=== PATIENT | male | born 1930 | race Caucasian/White ===

== ENCOUNTER 2016-08-28 17:33 | Emergency (ER) | payer MEDICARE, BC ==
[2016-08-28] MEDS ORDERED: Sodium Chloride 0.9% 10 ML Syringe FLUSH PRN (17:55)
[2016-08-28] MEDS ORDERED: Aspirin 81 MG Tab.EC PO ONE (17:55)
[2016-08-28] MEDS ORDERED: Nitroglycerin 0.4 MG Tab.SL SL ONE (17:56)
--- NOTE | 2016-08-28 18:05 | EDM.PDOC ---
ED HISTORY OF PRESENT ILLNESS - General Chief Complaint: Chest Pain Stated Complaint: Left arm pain Time Seen by Provider: 08/28/16 17:52 Source of Information: Reports: Patient, Family, RN, RN notes reviewed History Limitations: Reports: No limitations - History of Present Illness INITIAL COMMENTS - FREE TEXT/NARRATIVE: Patient presents to the ED at [facility] with left arm pain. The patient's family states he also had chest pain. The pains started about one hour ago. The patient states he took two baby ASA. Patient has a history of CABG 2002. Patient also known diabetic with well controlled sugars. Patient states he has some mild SOB. No new edema. No new focal neurological deficits. Symptom Onset Date: 08/28/16 Symptom Onset Time: 17:00 Timing/Duration: Reports: Improving Location, General: Reports: upper extremity, left Quality: Reports: Pressure Improves with: Reports: None Worsens with: Reports: None Context, General: Denies: Activity, Exercise, Lifting, Sick contact, Trauma Associated Symptoms (General): Reports: no other symptoms - Related Data Allergies/ADRs: Allergies Allergy/AdvReac Type Severity Reaction Status Date / Time No Known Allergies Allergy Verified 08/28/16 18:02 Home Meds: Home Meds Allopurinol [Allopurinol] 100 mg PO DAILY 08/28/16 [History] Aspirin [Ecotrin] 81 mg PO DAILY 08/28/16 [History] Calcium Citrate/Vitamin D3 [Citracal + D Maximum Caplet] 1 tab PO DAILY [History] Cholecalciferol (Vitamin D3) [Vitamin D3] 1,000 unit PO DAILY 08/28/16 [History] Cyanocobalamin (Vitamin B-12) [B-12] 1 tab PO DAILY 08/28/16 [History] Doxazosin [Cardura] 4 mg PO BEDTIME 08/28/16 [History] FA/Lycopene/Lut/MV,Ca,Iron,Min [Centrum] 1 tab PO DAILY 08/28/16 [History] Fish Oil/[place]-3 Fatty Acids [Fish Oil 1,000 MG] 1,000 mg PO DAILY 08/28/16 [ History] Fluticasone Propionate [Flonase] 1 spray NS BID 08/28/16 [History] Lutein/Minerals/Vit A,C & E [Ocuvite] 1 tab PO DAILY 08/28/16 [History] Metoprolol Tartrate 150 mg PO BID 08/28/16 [History] Triamcinolone Acetonide [Triamcinolone Acetonide 0.1% Oint] 1 g TOP BID [History] amLODIPine [Norvasc] 5 mg PO DAILY 08/28/16 [History] atorvaSTATin [Lipitor] 20 mg PO BEDTIME 08/28/16 [History] glipiZIDE [Glipizide] 5 mg PO ACBREAKFAST 08/28/16 [History] Past Medical History Cardiovascular History: Reports: CAD, High cholesterol, Hypertension, [place] Musculoskeletal History: Reports: Gout Social & Family History - Family History Family Medical History: Noncontributory ED ROS GENERAL - Review of Systems Review Of Systems: See Below Constitutional: Denies: fever, chills, weakness Respiratory: Reports: Shortness of Breath. Denies: Cough, Sputum Cardiovascular: Reports: Chest pain, Edema (chronic). Denies: Lightheadedness, Palpitations GI/Abdominal: Denies: Abdominal pain, Nausea, Vomiting Musculoskeletal: Reports: arm pain Skin: Reports: no symptoms Neurological: Denies: Dizziness, Headache, Numbness, Paresthesia, Tingling ED EXAM, GENERAL - Physical Exam Exam: See Below Exam Limited By: No limitations General Appearance: alert, no apparent distress Eye Exam: bilateral eye: EOMI, normal inspection, PERRL Respiratory/Chest: no respiratory distress, lungs clear, decreased breath sounds Cardiovascular: tachycardia Peripheral Pulses: 1+: posterior tibial (L), posterior tibial (R), dorsalis pedis (L), dorsalis pedis (R) GI/Abdominal: soft, non tender, abnormal bowel sounds: (hypoactive) Neurological: alert, oriented Skin Exam: Warm, Dry, Intact, Normal color, No rash EKG INTERPRETATION EKG Date: 08/28/16 Time: 17:44 Rhythm: NSR Rate (beats/min): 95 [place]: normal P-wave: present QRS: normal ST-T: normal QT: normal WI/PQ Interval: 0.11 Comparison: NA - no prior EKG EKG Interpretation Comments: 1. Sinus Rhythm with short WI interval 2. LVH and ST-T changes Course - Vital Signs Last Recorded V/S: Last Vital Signs Temp 36.6 C 08/28/16 17:33 Pulse 90 08/28/16 18:47 Resp 20 08/28/16 18:00 BP 168/79 H 08/28/16 18:47 Pulse Ox 98 08/28/16 18:00 - Orders/Labs/Meds Orders: Active Orders 24 hr Category Date Time Status EKG 12 Lead [EKG Documentation Completion] [RC] STAT Care 08/28/16 17:54 Active Chest 2V [CR] Stat Exams 08/28/16 17:54 Taken Sodium Chloride 0.9% [Saline Flush] Med 08/28/16 17:55 Active 10 ml FLUSH ASDIRECTED PRN Peripheral IV Insertion Adult [OM.PC] Routine Oth 08/28/16 17:55 Ordered Medication Orders Sodium Chloride (Saline Flush) 10 ml FLUSH ASDIRECTED PRN PRN Reason: Keep Vein Open Last Admin: 08/28/16 17:45 Dose: 10 ml Labs: Laboratory Tests 08/28/16 08/28/16 08/28/16 Range/Units 17:50 17:50 18:06 WBC 9.5 (4.0-10.0) x10^3/uL RBC 3.83 L (4.5-6.0) x10^6/uL Hgb 11.9 L (14.0-18.0) g/dL Hct 36.1 L (40.0-52.0) % MCV 94.3 H (78.0-93.0) fL MCH 31.1 (26.0-32.0) pg MCHC 33.0 (32.0-36.0) g/dL RDW Coeff of Mario 13.5 (10.0-15.0) % Plt Count 193 (130-400) x10^3/uL Neut % (Auto) 70.1 (50.0-80.0) % Lymph % (Auto) 17.6 L (25.0-50.0) % [place] % (Auto) 7.1 (2.0-11.0) % Eos % (Auto) 4.8 H (0.0-4.0) % Baso % (Auto) 0.4 (0.2-1.2) % Sodium 142 (136-145) mmol/L Potassium 3.7 (3.5-5.1) mmol/L Chloride 105 (98-107) mmol/L Carbon Dioxide 27 (21-32) mmol/L BUN 24 H (7-18) mg/dL Creatinine 2.5 H (0.70-1.30) mg/dL Est Cr Clr Drug Dosing 22.00 mL/min Estimated GFR (MDRD) 25 Glucose 212 H (74-106) mg/dL Calcium 7.9 L (8.5-10.1) mg/dL Corrected Calcium 9.10 (8.5-10.1) mg/dL Phosphorus 3.7 (2.6-4.7) mg/dL Magnesium 1.9 (1.8-2.4) mg/dL Total Bilirubin 0.4 (0.2-1.0) mg/dL AST 15 (15-37) U/L ALT 20 (16-63) U/L Alkaline Phosphatase 79 (46-116) U/L Creatine Kinase 157 (39-308) U/L Creatine Kinase Index 1.3 (0.0-4.0) % CK-MB (CK-2) 2.0 (0.0-3.6) ng/mL POC Troponin I 0.01 (0.00-0.08) ng/mL Total Protein 6.2 L (6.4-8.2) g/dL Albumin 2.5 L (3.4-5.0) g/dL Globulin 3.7 Albumin/Globulin Ratio 0.68 Meds: Medications Generic Name Dose Route Start Last Admin Trade Name Freq PRN Reason Stop Dose Admin Sodium Chloride 10 ml 08/28/16 17:55 08/28/16 17:45 Saline Flush FLUSH 10 ml ASDIRECTED PRN Administration Keep Vein Open Discontinued Medications Generic Name Dose Route Start Last Admin Trade Name Freq PRN Reason Stop Dose Admin Aspirin 162 mg 08/28/16 17:55 08/28/16 17:53 Halfprin PO 08/28/16 17:56 162 mg ONETIME ONE Administration Nitroglycerin 0.4 mg 08/28/16 17:56 08/28/16 17:45 Nitrostat SL 08/28/16 17:57 0.4 mg ONETIME ONE Administration Departure - Departure Time of Disposition: 19:04 Disposition: DC/Tfer to Acute Hospital 02 Reason for Transfer *Q: Primary PCI Indicated Condition: fair Clinical Impression: Unstable angina Forms: Interfacility Transfer EMTALA ED Communication - ED Communication Date/Time Date: 08/28/16 Time Called: 19:06 - Discussed Case With (1) Discussed Case With (1): Admitting Provider (Dr. Blackman, Hospitalist Dr. Dougherty, Cardiology) - Conversation Summary Admitting Provider Agreed to Patient's Admission: Yes - Problem List Review Problem List Initiated/Reviewed/Updated: Yes - My Orders Last 24 Hours: My Active Orders 08/28/16 17:54 EKG 12 Lead [EKG Documentation Completion] [RC] STAT Chest 2V [CR] Stat 08/28/16 17:55 Sodium Chloride 0.9% [Saline Flush] 10 ml FLUSH ASDIRECTED PRN Peripheral IV Insertion Adult [OM.PC] Routine - Assessment/Plan Last 24 Hours: My Active Orders 08/28/16 17:54 EKG 12 Lead [EKG Documentation Completion] [RC] STAT Chest 2V [CR] Stat 08/28/16 17:55 Sodium Chloride 0.9% [Saline Flush] 10 ml FLUSH ASDIRECTED PRN Peripheral IV Insertion Adult [OM.PC] Routine
[2016-08-28 19:18] VITALS: BP 214/92
== END 2016-08-28 19:38 | disposition short-term general hospital (02) ==
LOC: VM.ED 17:33
DX: I20.0 Unstable angina (principal); I10 Essential (primary) hypertension; I25.2 Old myocardial infarction; M10.9 Gout, unspecified; Z79.82 Long term (current) use of aspirin; Z79.899 Other long term (current) drug therapy
CPT/HCPCS: 71020; 80053; 82550; 82553; 83735; 84100; 84484; 85025; 93005; 99285; A9270; J7050

== ENCOUNTER 2017-03-11 22:06 | Observation (INO) | payer MEDICARE, BC ==
[2017-03-11] MEDS ORDERED: methylPREDNISolone Sodium Succinate 125 MG/2 ML SDV IVPUSH ONE ×2 (22:25→23:00)
[2017-03-11] MEDS ORDERED: Sodium Chloride 0.9% 10 ML Syringe FLUSH PRN (22:25)
[2017-03-11] MEDS ORDERED: Sodium Chloride 0.9% 1,000 ML IV ONE (23:09)
[2017-03-11] MEDS ORDERED: Thiamine 200 MG/2 ML MDV IV ONE (23:27)
--- NOTE | 2017-03-11 23:37 | EDM.PDOC ---
ED HPI GENERAL MEDICAL PROBLEM - General Chief Complaint: Respiratory Problem Stated Complaint: Dyspnea Time Seen by Provider: 03/11/17 22:24 Source of Information: Reports: Patient, Family History Limitations: Reports: No Limitations - History of Present Illness INITIAL COMMENTS - FREE TEXT/NARRATIVE: Patient is brought in by his family after his granddaughter's birthday republican. He recently had his Lasix dosing reduced due to increasing kidney failure. Patient does have a right AV fistula that's been placed for dialysis; he has not started to use this yet. Over the last few days he's been increasingly more short of breath. Family noticed after he drove home this evening that it took him 25 minutes or longer to catch his breath once he sat in his recliner. Family 's noticed that over the last week or 2 he's also had increased swelling to his lower extremities bilaterally. Due to his renal failure his Lasix dose has been reduced and they have noticed all of these symptoms once that was taken from 40 daily to 20 daily. Patient has history of open heart surgery, chronic renal failure, hypertension, diabetes. Recently did lose his of 60 years. Onset: Gradual Duration: Chronic Location: Reports: Chest Severity: Moderate Improves with: Reports: Medication Associated Symptoms: Reports: Cough, Shortness of Breath - Related Data Allergies Allergy/AdvReac Type Severity Reaction Status Date / Time No Known Allergies Allergy Verified 08/28/16 18:02 Home Meds: Home Meds Allopurinol [Allopurinol] 100 mg PO DAILY 08/28/16 [History] Aspirin [Ecotrin] 81 mg PO DAILY 08/28/16 [History] Calcium Citrate/Vitamin D3 [Citracal + D Maximum Caplet] 1 tab PO DAILY [History] Cholecalciferol (Vitamin D3) [Vitamin D3] 1,000 unit PO DAILY 08/28/16 [History] Cyanocobalamin (Vitamin B-12) [B-12] 1 tab PO DAILY 08/28/16 [History] Doxazosin [Cardura] 4 mg PO BEDTIME 08/28/16 [History] FA/Lycopene/Lut/MV,Ca,Iron,Min [Centrum] 1 tab PO DAILY 08/28/16 [History] Fish Oil/[place]-3 Fatty Acids [Fish Oil 1,000 MG] 1,000 mg PO DAILY 08/28/16 [ History] Fluticasone Propionate [Flonase] 1 spray NS BID 08/28/16 [History] Lutein/Minerals/Vit A,C & E [Ocuvite] 1 tab PO DAILY 08/28/16 [History] Metoprolol Tartrate 150 mg PO BID 08/28/16 [History] Triamcinolone Acetonide [Triamcinolone Acetonide 0.1% Oint] 1 g TOP BID [History] amLODIPine [Norvasc] 10 mg PO DAILY 08/28/16 [History] glipiZIDE [Glipizide] 5 mg PO ACBREAKFAST 08/28/16 [History] Clopidogrel [Plavix] 75 mg PO DAILY 09/19/16 [History] Multivitamin with Minerals [Multiple Vitamin] 1 tab PO DAILY 09/19/16 [History] Nitroglycerin [Nitrostat] 0.4 mg SL ASDIRECTED PRN 09/19/16 [History] atorvaSTATin Calcium [Atorvastatin Calcium] 80 mg PO BEDTIME 09/19/16 [History] Furosemide [Lasix] 20 mg PO DAILY 09/29/16 [History] Past Medical History HEENT History: Reports: Cataract Cardiovascular History: Reports: CAD, High Cholesterol, Hypertension, MD Other Cardiovascular History: coronary atherosclerosis Genitourinary History: Reports: Other (See Below) Other Genitourinary History: CKD stage III Musculoskeletal History: Reports: Gout Other Musculoskeletal History: compound fx of leg Psychiatric History: Reports: Dementia, Other (See Below) Other Psychiatric History: mild dementia Endocrine/Metabolic History: 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, Type II, IDDM - Past Surgical History Cardiovascular Surgical History: Reports: Coronary Artery Bypass, Other (See Below) Social & Family History - Family History Family Medical History: Noncontributory - Tobacco Use Smoking Status *Q: Former Smoker - Recreational Drug Use Recreational Drug Use: No ED ROS GENERAL - Review of Systems Review Of Systems: See Below Constitutional: Reports: No Symptoms HEENT: Reports: No Symptoms Respiratory: Reports: Shortness of Breath Cardiovascular: Reports: Edema Endocrine: Reports: No Symptoms GI/Abdominal: Reports: No Symptoms : Reports: No Symptoms Musculoskeletal: Reports: No Symptoms Skin: Reports: No Symptoms Neurological: Reports: No Symptoms Psychiatric: Reports: No Symptoms Hematologic/Lymphatic: Reports: No Symptoms Immunologic: Reports: No Symptoms ED EXAM, GENERAL - Physical Exam Exam: See Below Free Text/Narrative:: PLEASE USE ER HISTORY AND PHYSICAL FOR ADMISSION H AND P Exam Limited By: No Limitations General Appearance: Alert, WD/WN, No Apparent Distress Eye Exam: Bilateral Eye: EOMI, PERRL Ears: Normal TMs Nose: Normal Inspection Throat/Mouth: Normal Inspection Head: Atraumatic, Normocephalic Neck: Normal Inspection Respiratory/Chest: No Respiratory Distress, No Accessory Muscle Use, Chest Non- Tender, Rales (bibasilar) Cardiovascular: Normal Peripheral Pulses, Regular Rate, Rhythm, Systolic Murmur Peripheral Pulses: 2+: Posterior Tibial (L), Posterior Tibial (R), Dorsalis Pedis (L), Dorsalis Pedis (R) GI/Abdominal: Normal Bowel Sounds, Soft, Non-Tender Extremities: Normal Range of Motion, Non-Tender, Normal Capillary Refill, Pedal Edema (right greater than left) Neurological: Alert, Oriented, CN II-XII Intact, Normal Cognition, Normal Gait, Normal Reflexes, No Motor/Sensory Deficits Psychiatric: Normal Affect, Normal Mood Skin Exam: Warm, Dry, Intact, Normal Color, No Rash Lymphatic: No Adenopathy Course - Orders/Labs/Meds Orders: Active Orders 24 hr Category Date Time Status Chest 1V Frontal [CR] Stat Exams 03/11/17 22:25 Stop Req Chest 2V [CR] Stat Exams 03/11/17 22:34 Ordered COMPREHENSIVE METABOLIC PN,CMP [CHEM] Stat Lab 03/11/17 22:25 Ordered INR,PT,PROTHROMBIN TIME [COAG] Stat Lab 03/11/17 22:25 Ordered PRO B-TYPE NATRIUR PEPT,BNPPRO [CHEM] Stat Lab 03/11/17 22:25 Ordered TROPONIN I [CHEM] Stat Lab 03/11/17 22:25 Ordered TSH ULTRASENSITIVE [CHEM] Stat Lab 03/11/17 22:25 Ordered Sodium Chloride 0.9% [Normal Saline] 1,000 ml Med 03/11/17 23:09 Ordered IV ONETIME Sodium Chloride 0.9% [Saline Flush] Med 03/11/17 22:25 Ordered 10 ml FLUSH ASDIRECTED PRN Thiamine [Vitamin B-1] Med 03/11/17 23:27 Once 100 mg IV ONETIME ONE Saline Lock Insert [OM.PC] Routine Oth 03/11/17 22:25 Ordered Medication Orders Sodium Chloride (Normal Saline) 1,000 mls @ 999 mls/hr IV ONETIME ONE Stop: 03/12/17 00:09 Sodium Chloride (Saline Flush) 10 ml FLUSH ASDIRECTED PRN PRN Reason: Keep Vein Open Labs: Laboratory Tests 03/11/17 Range/Units 23:05 WBC 9.2 (4.0-10.0) x10^3/uL RBC 3.09 L (4.5-6.0) x10^6/uL Hgb 9.6 L D (14.0-18.0) g/dL Hct 30.2 L (40.0-52.0) % MCV 97.7 H D (78.0-93.0) fL MCH 31.1 (26.0-32.0) pg MCHC 31.8 L (32.0-36.0) g/dL RDW Coeff of Mario 14.1 (10.0-15.0) % Plt Count 202 (130-400) x10^3/uL Neut % (Auto) 80.6 H (50.0-80.0) % Lymph % (Auto) 8.2 L (25.0-50.0) % [place] % (Auto) 7.0 (2.0-11.0) % Eos % (Auto) 3.7 (0.0-4.0) % Baso % (Auto) 0.5 (0.2-1.2) % Meds: Medications Generic Name Dose Route Start Last Admin Trade Name Freq PRN Reason Stop Dose Admin Sodium Chloride 1,000 mls @ 999 mls/hr 03/11/17 23:09 Normal Saline IV 03/12/17 00:09 ONETIME ONE Sodium Chloride 10 ml 03/11/17 22:25 Saline Flush FLUSH ASDIRECTED PRN Keep Vein Open Discontinued Medications Generic Name Dose Route Start Last Admin Trade Name Freq PRN Reason Stop Dose Admin Methylprednisolone Sodium Succinate 125 mg 03/11/17 22:25 Solu-Medrol IVPUSH 03/11/17 22:26 ONETIME ONE Departure - Departure Time of Disposition: 00:30 Disposition: Refer to Observation Condition: Fair Clinical Impression: CHF (congestive heart failure), Kidney disease - Discharge Information - My Orders Last 24 Hours: My Active Orders 03/11/17 22:25 Chest 1V Frontal [CR] Stat COMPREHENSIVE METABOLIC PN,CMP [CHEM] Stat INR,PT,PROTHROMBIN TIME [COAG] Stat PRO B-TYPE NATRIUR PEPT,BNPPRO [CHEM] Stat TROPONIN I [CHEM] Stat TSH ULTRASENSITIVE [CHEM] Stat Sodium Chloride 0.9% [Saline Flush] 10 ml FLUSH ASDIRECTED PRN Saline Lock Insert [OM.PC] Routine 03/11/17 22:34 Chest 2V [CR] Stat 03/11/17 23:09 Sodium Chloride 0.9% [Normal Saline] 1,000 ml IV ONETIME 03/11/17 23:27 Thiamine [Vitamin B-1] 100 mg IV ONETIME ONE - Assessment/Plan Last 24 Hours: My Active Orders 03/11/17 22:25 Chest 1V Frontal [CR] Stat COMPREHENSIVE METABOLIC PN,CMP [CHEM] Stat INR,PT,PROTHROMBIN TIME [COAG] Stat PRO B-TYPE NATRIUR PEPT,BNPPRO [CHEM] Stat TROPONIN I [CHEM] Stat TSH ULTRASENSITIVE [CHEM] Stat Sodium Chloride 0.9% [Saline Flush] 10 ml FLUSH ASDIRECTED PRN Saline Lock Insert [OM.PC] Routine 03/11/17 22:34 Chest 2V [CR] Stat 03/11/17 23:09 Sodium Chloride 0.9% [Normal Saline] 1,000 ml IV ONETIME 03/11/17 23:27 Thiamine [Vitamin B-1] 100 mg IV ONETIME ONE
[2017-03-11 23:50] LABS: CHLORIDE,CL 107 mmol/L (98-107); SODIUM,NA 143 mmol/L (136-145)
[2017-03-12] MEDS ORDERED: Acetaminophen 325 MG Tab PO PRN (03:49)
[2017-03-12] MEDS ORDERED: Ondansetron 4 MG Tab.DIS PO PRN (03:49)
[2017-03-12] MEDS ORDERED: Acetaminophen/HYDROcodone 325-5 MG Tab PO PRN (03:49)
[2017-03-12] MEDS ORDERED: Nitroglycerin 0.4 MG Tab.SL SL PRN (03:53)
[2017-03-12] MEDS ORDERED: Torsemide 20 MG Tab PO SCH ×2 (04:00→15:30)
[2017-03-12] MEDS ORDERED: Furosemide 40 MG/4 ML VIAL IV SCH (04:15)
[2017-03-12] MEDS: Furosemide 40 MG/4 ML VIAL IV SCH ×2 (05:21→16:00)
[2017-03-12] MEDS: Docusate Sodium 100 MG Cap PO PRN ×2 (06:26→19:55)
[2017-03-12] MEDS ORDERED: glipiZIDE 5 MG Tab PO SCH (07:00)
[2017-03-12] MEDS: Albuterol/Ipratropium 3.0-0.5 MG/3 ML Neb Soln NEB PRN ×2 (07:51→19:12)
[2017-03-12] MEDS ORDERED: Calcium Carbonate/Vitamin D3 1250 MG-200 Unit Tab PO SCH (08:00)
[2017-03-12] MEDS ORDERED: Allopurinol 100 MG Tab PO SCH (08:00)
[2017-03-12] MEDS ORDERED: Cholecalciferol (Vitamin D3) 1,000 Unit Tab PO SCH (08:00)
[2017-03-12] MEDS ORDERED: Beta-Carotene (Vitamin A) w/Vitamin C & E plus Minerals Tab PO SCH (08:00)
[2017-03-12] MEDS ORDERED: Aspirin 81 MG Tab.EC PO SCH (08:00)
[2017-03-12] MEDS ORDERED: Clopidogrel 75 MG Tab PO SCH (08:00)
[2017-03-12] MEDS ORDERED: Fish Oil/Omega-3 Fatty Acids 1 Gm Cap PO SCH (08:00)
[2017-03-12] MEDS ORDERED: Cyanocobalamin (Vitamin B12) 1,000 MCG Tab PO SCH (08:00)
[2017-03-12] MEDS ORDERED: Multivitamins with Iron/Calcium/Folic Acid/Minerals Tab PO SCH (08:00)
[2017-03-12] MEDS ORDERED: TRIAMCINOLONE ACETONIDE TOP SCH (08:00)
[2017-03-12] MEDS: methylPREDNISolone Sodium Succinate 125 MG/2 ML SDV IVPUSH SCH ×2 (08:10→16:00)
[2017-03-12] MEDS: Metoprolol Tartrate 50 MG Tab PO SCH ×2 (08:12→19:54)
[2017-03-12] MEDS: Triamcinolone Acetonide 0.1% Crm 15 GM Tube TOP SCH ×2 (10:30→20:04)
--- NOTE | 2017-03-12 18:16 | PCM.PN ---
- General Info Date of Service: 03/12/17 Admission Dx/Problem (Free Text): chf exacerbation Functional Status: Reports: Pain Controlled, Tolerating Diet - Review of Systems General: Reports: No Symptoms HEENT: Reports: No Symptoms Pulmonary: Reports: Shortness of Breath Cardiovascular: Reports: No Symptoms Gastrointestinal: Reports: No Symptoms Genitourinary: Reports: No Symptoms Musculoskeletal: Reports: No Symptoms Skin: Reports: No Symptoms Neurological: Reports: No Symptoms Psychiatric: Reports: No Symptoms - Patient Data Vitals - Most Recent: Last Vital Signs Temp 37.0 C 03/12/17 13:51 Pulse 70 03/12/17 13:51 Resp 20 03/12/17 13:51 BP 155/55 H 03/12/17 13:51 Pulse Ox 94 L 03/12/17 13:51 Weight - Most Recent: 108.522 kg I&O - Last 24 Hours: Intake & Output 03/12/17 03/12/17 03/12/17 06:59 14:59 22:59 Intake Total 600 520 Output Total 650 400 400 Balance -50 120 -400 Lab Results Last 24 Hours: Laboratory Results - last 24 hr 03/12/17 03/12/17 03/12/17 Range/Units 06:30 11:27 11:35 Sodium 142 (136-145) mmol/L Potassium 4.7 (3.5-5.1) mmol/L Chloride 107 (98-107) mmol/L Carbon Dioxide 28 (21-32) mmol/L BUN 48 H (7-18) mg/dL Creatinine 3.5 H* (0.70-1.30) mg/dL Est Cr Clr Drug Dosing 15.43 mL/min Estimated GFR (MDRD) 17 Glucose 243 H (74-106) mg/dL POC Glucose 202 H 225 H (74-106) mg/dL Calcium 8.7 (8.5-10.1) mg/dL 03/12/17 Range/Units 17:19 Sodium (136-145) mmol/L Potassium (3.5-5.1) mmol/L Chloride (98-107) mmol/L Carbon Dioxide (21-32) mmol/L BUN (7-18) mg/dL Creatinine (0.70-1.30) mg/dL Est Cr Clr Drug Dosing mL/min Estimated GFR (MDRD) Glucose (74-106) mg/dL POC Glucose 242 H (74-106) mg/dL Calcium (8.5-10.1) mg/dL Med Orders - Current: Current Medications Acetaminophen (Tylenol) 650 mg PO Q4H PRN PRN Reason: Pain (Mild 1-3)/fever Hydrocodone Bitart/Acetaminophen ([place] 325-5 Mg) 1 tab PO Q4H PRN PRN Reason: Pain (moderate 4-6) Albuterol/Ipratropium (Duoneb 3.0-0.5 Mg/3 Ml) 3 ml NEB Q4H PRN PRN Reason: dyspnea/wheezing Last Admin: 03/12/17 07:51 Dose: 3 ml Allopurinol (Zyloprim) 100 mg PO DAILY [facility] Last Admin: 03/12/17 08:11 Dose: 100 mg Aspirin (Halfprin) 81 mg PO DAILY [facility] Last Admin: 03/12/17 08:11 Dose: 81 mg Atorvastatin Calcium (Lipitor) 80 mg PO BEDTIME [facility] Calcium Carbonate (Calcium Carbonate/Vitamin D 1250 Mg-200 Unit) 1 tab PO DAILY [facility] Last Admin: 03/12/17 08:12 Dose: 1 tab Cholecalciferol (Vitamin D3) 1,000 units PO DAILY [facility] Last Admin: 03/12/17 08:13 Dose: 1,000 units Clopidogrel Bisulfate (Plavix) 75 mg PO DAILY [facility] Last Admin: 03/12/17 08:13 Dose: 75 mg Cyanocobalamin (Vitamin B12) 1,000 mcg PO DAILY [facility] Last Admin: 03/12/17 08:11 Dose: 1,000 mcg Docusate Sodium (Colace) 100 mg PO BID PRN PRN Reason: Constipation Last Admin: 03/12/17 06:26 Dose: 100 mg Doxazosin Mesylate (Cardura) 4 mg PO BEDTIME [facility] Fish Oil (Fish Oil) 1 gm PO DAILY [facility] Last Admin: 03/12/17 08:12 Dose: 1 gm Furosemide (Lasix) 40 mg IV BIDDIURETIC [facility] Last Admin: 03/12/17 16:00 Dose: 40 mg Glipizide (Glucotrol) 5 mg PO ACBREAKFAST [facility] Last Admin: 03/12/17 06:26 Dose: 5 mg Methylprednisolone Sodium Succinate (Solu-Medrol) 125 mg IVPUSH Q8H [facility] Last Admin: 03/12/17 16:00 Dose: 125 mg Metoprolol Tartrate (Lopressor) 150 mg PO BID [facility] Last Admin: 03/12/17 08:12 Dose: 150 mg Multivitamins/Minerals (Prosight) 1 tab PO DAILY [facility] Last Admin: 03/12/17 08:12 Dose: 1 tab Multivitamins/Minerals (Thera M Plus) 1 tab PO DAILY [facility] Last Admin: 03/12/17 08:10 Dose: 1 tab Nitroglycerin (Nitrostat) 0.4 mg SL ASDIRECTED PRN PRN Reason: Chest Pain Ondansetron HCl (Zofran Odt) 4 mg PO Q6H PRN PRN Reason: nausea, able to take PO Sodium Chloride (Saline Flush) 10 ml FLUSH ASDIRECTED PRN PRN Reason: Keep Vein Open Torsemide (Demadex) 20 mg PO BID@0730,1530 [facility] Last Admin: 03/12/17 15:26 Dose: 20 mg Triamcinolone Acetonide (Triamcinolone Acetonide 0.1% Crm) 0 gm TOP BID [facility] Last Admin: 03/12/17 10:30 Dose: Not Given Discontinued Medications Furosemide (Lasix) 40 mg IV BIDDIURETIC [facility] Last Admin: 03/12/17 05:38 Dose: Not Given Sodium Chloride (Normal Saline) 1,000 mls @ 999 mls/hr IV ONETIME ONE Stop: 03/12/17 00:09 Last Admin: 03/12/17 02:33 Dose: Not Given Methylprednisolone Sodium Succinate (Solu-Medrol) 125 mg IVPUSH ONETIME ONE Stop: 03/11/17 22:26 Last Admin: 03/12/17 02:30 Dose: Not Given Methylprednisolone Sodium Succinate (Solu-Medrol) 125 mg IVPUSH ONETIME ONE Stop: 03/11/17 23:01 Last Admin: 03/11/17 23:33 Dose: 125 mg Non-Formulary Medication (Triamcinolone Acetonide [Triamcinolone Acetonide 0.1% Oint]) 1 g TOP BID [facility] Last Admin: 03/12/17 09:44 Dose: Not Given Thiamine HCl (Vitamin B-1) 100 mg IV ONETIME ONE Stop: 03/11/17 23:28 Last Admin: 03/12/17 02:33 Dose: Not Given Torsemide (Demadex) 20 mg PO BID@0730,1530 [facility] Last Admin: 03/12/17 04:56 Dose: 20 mg - Exam Quality Assessment: Supplemental Oxygen General: Alert, Oriented, Cooperative, No Acute Distress HEENT: Pupils Equal, Pupils Reactive Neck: Supple Lungs: Clear to Auscultation, Normal Respiratory Effort Cardiovascular: Regular Rate GI/Abdominal Exam: Normal Bowel Sounds, Soft, Non-Tender Back Exam: Normal Inspection Extremities: Pedal Edema (right greater than left) Peripheral Pulses: 2+: Posterior Tibial (L), Posterior Tibial (R), Dorsalis Pedis (L), Dorsalis Pedis (R) Skin: Warm, Dry, Other (wound to left great toe, here on admission from ER) Wound/Incisions: Healing Well Neurological: No New Focal Deficit Psy/Mental Status: Alert, Normal Affect, Normal Mood - Problem List & Annotations (1) CHF (congestive heart failure) SNOMED Code(s): 75754794 Code(s): I50.9 - HEART FAILURE, UNSPECIFIED Status: Acute Priority: Low Current Visit: Yes Qualifiers: Congestive heart failure type: unspecified congestive heart failure type Congestive heart failure chronicity: acute on chronic Qualified Code(s): I50.9 - Heart failure, unspecified (2) Kidney disease SNOMED Code(s): 37735589 Code(s): N28.9 - DISORDER OF KIDNEY AND URETER, UNSPECIFIED Status: Acute Priority: Medium Current Visit: Yes - Problem List Review Problem List Initiated/Reviewed/Updated: Yes - My Orders Last 24 Hours: My Active Orders 03/12/17 03:49 Patient Status [ADT] Routine Blood Glucose Check, Bedside [RC] 07,11,17,20 Oxygen Therapy [RC] 08,20 Up With Assistance [RC] 08 Up to Chair [RC] 08 VTE/DVT Education [RC] .PRN Vital Signs [RC] 06,10,14,18,22,02 Respiratory Care Assess and Treatment [CONS] Routine Acetaminophen [Tylenol] 650 mg PO Q4H PRN Acetaminophen/HYDROcodone [[place] 325-5 MG] 1 tab PO Q4H PRN Albuterol/Ipratropium [DuoNeb 3.0-0.5 MG/3 ML] 3 ml NEB Q4H PRN Docusate Sodium [Colace] 100 mg PO BID PRN Ondansetron [Zofran ODT] 4 mg PO Q6H PRN 03/12/17 03:51 Intake and Output [RC] 06,18 Pulse Oximetry [RC] .PRN Sequential Compression Device [OM.PC] Per Unit Routine 03/12/17 03:52 Antiembolic Devices [RC] 08,20 RT Aerosol Therapy [RC] .PRN 03/12/17 03:53 Nitroglycerin [Nitrostat] 0.4 mg SL ASDIRECTED PRN 03/12/17 03:54 Code Status [Resuscitation Status] Routine 03/12/17 04:00 Furosemide [Lasix] 40 mg IV BIDDIURETIC 03/12/17 07:00 glipiZIDE [Glucotrol] 5 mg PO ACBREAKFAST 03/12/17 08:00 Allopurinol [Zyloprim] 100 mg PO DAILY Aspirin [Halfprin] 81 mg PO DAILY Beta-Carotene(A) w/C & E/Min [Prosight] 1 tab PO DAILY Calcium Carbonate/Vitamin D3 [Calcium Carbonate/Vitamin D 1250 MG-200 Unit] 1 tab PO DAILY Cholecalciferol (Vitamin D3) [Vitamin D3] 1,000 units PO DAILY Clopidogrel [Plavix] 75 mg PO DAILY Cyanocobalamin (Vitamin B12) [Vitamin B12] 1,000 mcg PO DAILY Fish Oil/[place]-3 Fatty Acids [Fish Oil] 1 gm PO DAILY Metoprolol Tartrate [Lopressor] 150 mg PO BID Multivitamins w-Iron/Ca/FA/Min [Thera M Plus] 1 tab PO DAILY methylPREDNISolone Sod Succ [Solu-MEDROL] 125 mg IVPUSH Q8H 03/12/17 10:00 Triamcinolone Acetonide [Triamcinolone Acetonide 0.1% Crm] 0 gm TOP BID 03/12/17 15:30 Torsemide [Demadex] 20 mg PO BID@0730,1530 03/12/17 20:00 Doxazosin [Cardura] 4 mg PO BEDTIME atorvaSTATin [Lipitor] 80 mg PO BEDTIME 03/12/17 Breakfast [employer] Diet [DIET] 03/12/17 Lunch Fluid Restriction [DIET] - Plan Plan:: Continue diuresis, monitor kidney function.
[2017-03-12] MEDS ORDERED: Doxazosin 4 MG Tab PO SCH (20:00)
[2017-03-12] MEDS ORDERED: atorvaSTATin 40 MG Tab PO SCH (20:00)
--- NOTE | 2017-03-12 20:10 | PCM.DCSUM1 ---
Discharge Summary - Hospital Course Free Text/Narrative:: Pt. was admitted to medicine yesterday with worsening renal failure and acute exacerbation of renal failure. Pts. lasix was recently decreased in the clinic. 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 Pt. has only diuresed approx. 1700ml today. He is fluid restricted, and currently receiving Lasix 40mg BID and Torsemide 20mg BID. Tonight, pt. complained of worsening dyspnea. Decision was made to transfer the pt. to [facility] for acute renal failure and CHF exacerbation. Pt. creatnine and BUN both elevated mildly overnight. - Discharge Data Discharge Date: 03/12/17 Discharge Disposition: DC/Tfer to Acute Hospital 02 Condition: Serious - Discharge Diagnosis/Problem(s) (1) CHF (congestive heart failure) SNOMED Code(s): 80420182 ICD Code: I50.9 - HEART FAILURE, UNSPECIFIED Status: Acute Priority: Low Current Visit: Yes Qualifiers: Congestive heart failure type: unspecified congestive heart failure type Congestive heart failure chronicity: acute on chronic Qualified Code(s): I50.9 - Heart failure, unspecified (2) Kidney disease SNOMED Code(s): 42584581 ICD Code: N28.9 - DISORDER OF KIDNEY AND URETER, UNSPECIFIED Status: Acute Priority: Medium Current Visit: Yes - Patient Summary/Data Consults: Consultations 03/12/17 03:49 Respiratory Care Assess and Treatment [CONS] Routine - Discharge Plan Home Medications: Home Meds Allopurinol [Allopurinol] 100 mg PO DAILY 08/28/16 [History] Aspirin [Ecotrin] 81 mg PO DAILY 08/28/16 [History] Calcium Citrate/Vitamin D3 [Citracal + D Maximum [place]] 1 tab PO DAILY [History] Cholecalciferol (Vitamin D3) [Vitamin D3] 1,000 unit PO DAILY 08/28/16 [History] Cyanocobalamin (Vitamin B-12) [B-12] 1 tab PO DAILY 08/28/16 [History] Doxazosin [Cardura] 4 mg PO BEDTIME 08/28/16 [History] FA/Lycopene/Lut/MV,Ca,Iron,Min [Centrum] 1 tab PO DAILY 08/28/16 [History] Fish Oil/[place]-3 Fatty Acids [Fish Oil 1,000 MG] 1,000 mg PO DAILY 08/28/16 [ History] Fluticasone Propionate [Flonase] 1 spray NS BID 08/28/16 [History] Lutein/Minerals/Vit A,C & E [Ocuvite] 1 tab PO DAILY 08/28/16 [History] Metoprolol Tartrate 150 mg PO BID 08/28/16 [History] amLODIPine [Norvasc] 10 mg PO DAILY 08/28/16 [History] glipiZIDE [Glipizide] 5 mg PO ACBREAKFAST 08/28/16 [History] Clopidogrel [Plavix] 75 mg PO DAILY 09/19/16 [History] Multivitamin with Minerals [Multiple Vitamin] 1 tab PO DAILY 09/19/16 [History] Nitroglycerin [Nitrostat] 0.4 mg SL ASDIRECTED PRN 09/19/16 [History] atorvaSTATin Calcium [Atorvastatin Calcium] 80 mg PO BEDTIME 09/19/16 [History] Furosemide [Lasix] 20 mg PO DAILY 09/29/16 [History] Triamcinolone Acetonide [Triamcinolone Acetonide 0.1% Crm] 15 gm TOP BID [History] Patient Handouts: Hemodialysis, Heart Failure, Dialysis Diet Forms: ED Department Discharge, Interfacility Transfer EMTALA Referrals: Quita Madrid MD [Primary Care Provider] - - Discharge Summary/Plan Comment Discharge Summary/Plan Comment: Pt. will be transferred to [facility]. Accepting physician is Dr. Hilton (hospitalist). Pt. will be transferred via [facility] ground ambulance. - General Info Date of Service: 03/12/17 Admission Dx/Problem (Free Text: chf exacerbation, acute renal failure Functional Status: Reports: Pain Controlled - Review of Systems General: Reports: Fatigue HEENT: Reports: No Symptoms Pulmonary: Reports: Shortness of Breath Cardiovascular: Reports: Dyspnea on Exertion, Orthopnea Gastrointestinal: Reports: No Symptoms Genitourinary: Reports: No Symptoms Skin: Reports: No Symptoms Neurological: Reports: No Symptoms Psychiatric: Reports: No Symptoms - Patient Data Vitals - Most Recent: Last Vital Signs Temp 37.1 C 03/12/17 18:00 Pulse 85 03/12/17 19:54 Resp 24 H 03/12/17 18:00 BP 176/66 H 03/12/17 19:54 Pulse Ox 96 03/12/17 19:13 Weight - Most Recent: 108.522 kg I&O - Last 24 hours: Intake & Output 03/12/17 03/12/17 03/12/17 06:59 14:59 22:59 Intake Total 600 520 120 Output Total 650 400 725 Balance -50 120 -605 Lab Results - Last 24 hrs: Laboratory Results - last 24 hr 03/12/17 03/12/17 03/12/17 Range/Units 06:30 11:27 11:35 Sodium 142 (136-145) mmol/L Potassium 4.7 (3.5-5.1) mmol/L Chloride 107 (98-107) mmol/L Carbon Dioxide 28 (21-32) mmol/L BUN 48 H (7-18) mg/dL Creatinine 3.5 H* (0.70-1.30) mg/dL Est Cr Clr Drug Dosing 15.43 mL/min Estimated GFR (MDRD) 17 Glucose 243 H (74-106) mg/dL POC Glucose 202 H 225 H (74-106) mg/dL Calcium 8.7 (8.5-10.1) mg/dL 03/12/17 Range/Units 17:19 Sodium (136-145) mmol/L Potassium (3.5-5.1) mmol/L Chloride (98-107) mmol/L Carbon Dioxide (21-32) mmol/L BUN (7-18) mg/dL Creatinine (0.70-1.30) mg/dL Est Cr Clr Drug Dosing mL/min Estimated GFR (MDRD) Glucose (74-106) mg/dL POC Glucose 242 H (74-106) mg/dL Calcium (8.5-10.1) mg/dL Med Orders - Current: Current Medications Acetaminophen (Tylenol) 650 mg PO Q4H PRN PRN Reason: Pain (Mild 1-3)/fever Last Admin: 03/12/17 19:55 Dose: 650 mg Hydrocodone Bitart/Acetaminophen ([place] 325-5 Mg) 1 tab PO Q4H PRN PRN Reason: Pain (moderate 4-6) Albuterol/Ipratropium (Duoneb 3.0-0.5 Mg/3 Ml) 3 ml NEB Q4H PRN PRN Reason: dyspnea/wheezing Last Admin: 03/12/17 19:12 Dose: 3 ml Allopurinol (Zyloprim) 100 mg PO DAILY [facility] Last Admin: 03/12/17 08:11 Dose: 100 mg Aspirin (Halfprin) 81 mg PO DAILY [facility] Last Admin: 03/12/17 08:11 Dose: 81 mg Atorvastatin Calcium (Lipitor) 80 mg PO BEDTIME [facility] Last Admin: 03/12/17 19:54 Dose: 80 mg Calcium Carbonate (Calcium Carbonate/Vitamin D 1250 Mg-200 Unit) 1 tab PO DAILY [facility] Last Admin: 03/12/17 08:12 Dose: 1 tab Cholecalciferol (Vitamin D3) 1,000 units PO DAILY [facility] Last Admin: 03/12/17 08:13 Dose: 1,000 units Clopidogrel Bisulfate (Plavix) 75 mg PO DAILY [facility] Last Admin: 03/12/17 08:13 Dose: 75 mg Cyanocobalamin (Vitamin B12) 1,000 mcg PO DAILY [facility] Last Admin: 03/12/17 08:11 Dose: 1,000 mcg Docusate Sodium (Colace) 100 mg PO BID PRN PRN Reason: Constipation Last Admin: 03/12/17 19:55 Dose: 100 mg Doxazosin Mesylate (Cardura) 4 mg PO BEDTIME [facility] Last Admin: 03/12/17 19:52 Dose: 4 mg Fish Oil (Fish Oil) 1 gm PO DAILY [facility] Last Admin: 03/12/17 08:12 Dose: 1 gm Furosemide (Lasix) 40 mg IV BIDDIURETIC [facility] Last Admin: 03/12/17 16:00 Dose: 40 mg Glipizide (Glucotrol) 5 mg PO ACBREAKFAST [facility] Last Admin: 03/12/17 06:26 Dose: 5 mg Methylprednisolone Sodium Succinate (Solu-Medrol) 125 mg IVPUSH Q8H [facility] Last Admin: 03/12/17 16:00 Dose: 125 mg Metoprolol Tartrate (Lopressor) 150 mg PO BID [facility] Last Admin: 03/12/17 19:54 Dose: 150 mg Multivitamins/Minerals (Prosight) 1 tab PO DAILY [facility] Last Admin: 03/12/17 08:12 Dose: 1 tab Multivitamins/Minerals (Thera M Plus) 1 tab PO DAILY [facility] Last Admin: 03/12/17 08:10 Dose: 1 tab Nitroglycerin (Nitrostat) 0.4 mg SL ASDIRECTED PRN PRN Reason: Chest Pain Ondansetron HCl (Zofran Odt) 4 mg PO Q6H PRN PRN Reason: nausea, able to take PO Sodium Chloride (Saline Flush) 10 ml FLUSH ASDIRECTED PRN PRN Reason: Keep Vein Open Torsemide (Demadex) 20 mg PO BID@0730,1530 [facility] Last Admin: 03/12/17 15:26 Dose: 20 mg Triamcinolone Acetonide (Triamcinolone Acetonide 0.1% Crm) 0 gm TOP BID [facility] Last Admin: 03/12/17 20:04 Dose: Not Given Discontinued Medications Furosemide (Lasix) 40 mg IV BIDDIURETIC [facility] Last Admin: 03/12/17 05:38 Dose: Not Given Sodium Chloride (Normal Saline) 1,000 mls @ 999 mls/hr IV ONETIME ONE Stop: 03/12/17 00:09 Last Admin: 03/12/17 02:33 Dose: Not Given Methylprednisolone Sodium Succinate (Solu-Medrol) 125 mg IVPUSH ONETIME ONE Stop: 03/11/17 22:26 Last Admin: 03/12/17 02:30 Dose: Not Given Methylprednisolone Sodium Succinate (Solu-Medrol) 125 mg IVPUSH ONETIME ONE Stop: 03/11/17 23:01 Last Admin: 03/11/17 23:33 Dose: 125 mg Non-Formulary Medication (Triamcinolone Acetonide [Triamcinolone Acetonide 0.1% Oint]) 1 g TOP BID [facility] Last Admin: 03/12/17 09:44 Dose: Not Given Thiamine HCl (Vitamin B-1) 100 mg IV ONETIME ONE Stop: 03/11/17 23:28 Last Admin: 03/12/17 02:33 Dose: Not Given Torsemide (Demadex) 20 mg PO BID@0730,1530 [facility] Last Admin: 03/12/17 04:56 Dose: 20 mg - Exam Quality Assessment: Reports: Supplemental Oxygen General: Reports: Alert, Oriented HEENT: Reports: Pupils Equal, Pupils Reactive, EOMI, Mucous Membr. Moist/Gilt Edge Neck: Reports: Supple Lungs: Reports: Decreased Breath Sounds, Crackles Cardiovascular: Reports: Regular Rate, Regular Rhythm GI/Abdominal Exam: Normal Bowel Sounds, Soft, Non-Tender, No Organomegaly (Male) Exam: Deferred Rectal (Males) Exam: Deferred Back Exam: Reports: Normal Inspection, Full Range of Motion Extremities: Pedal Edema (3+ on left) Skin: Reports: Warm, Dry Neurological: Reports: No New Focal Deficit Psy/Mental Status: Reports: Alert, Normal Affect, Normal Mood *Q Meaningful Use (DIS) - VTE *Q VTE Criteria *Q: - Stroke *Q Stroke Criteria *Q: - AMI *Q AMI Criteria *Q:
[2017-03-12 21:24] VITALS: BP 142/51
== END 2017-03-12 21:40 | disposition short-term general hospital (02) ==
LOC: VM.ED 22:06 → INTOOBSV 23:42 → VM.MS 23:42 → UNDOADMIN 03-12 00:45 → VM.MS 03-12 00:45
PROVIDERS: ADMIT Nurse Practitioner Family; ATTEND Nurse Practitioner Family
DX: E11.22 Type 2 diabetes mellitus with diabetic chronic kidney disease (principal); I13.0 Hypertensive heart and chronic kidney disease with heart failure and stage 1 through stage 4 chronic kidney disease, or unspecified chronic kidney disease; N18.3 Chronic kidney disease, stage 3 (moderate); I25.10 Atherosclerotic heart disease of native coronary artery without angina pectoris; Z79.82 Long term (current) use of aspirin; Z79.899 Other long term (current) drug therapy; Z95.1 Presence of aortocoronary bypass graft; Z87.891 Personal history of nicotine dependence
CPT/HCPCS: 36415; 71020; 80048; 80053; 82962; 83880; 84443; 84484; 85025; 85610; 93005; 94640; 94760; 96374; 96375; 96376; 99285; A9270; G0378; J1940; J2930; 99217; 99220

== ENCOUNTER 2017-12-04 09:01 | Emergency (ER) | payer MEDICARE, BC ==
[2017-12-04] MEDS ORDERED: Sodium Chloride 0.9% 1,000 ML IV SCH (09:30)
--- NOTE | 2017-12-04 09:55 | EDM.PDOC ---
ED HPI GENERAL MEDICAL PROBLEM - General Chief Complaint: Chest Pain Stated Complaint: CHEST PAIN Time Seen by Provider: 12/04/17 09:04 Source of Information: Reports: Patient History Limitations: Reports: No Limitations - History of Present Illness INITIAL COMMENTS - FREE TEXT/NARRATIVE: Patrick presents this morning with complaints of upper back/shoulder pain. He states this started at around [id number] AM this morning. He also states he has taken 3 nitro tablets. The first relieved the pain for a few minutes, then it returned. He has taken 2 additional tablets with little improvement. He does have an extensive coronary history with a prior quadruple bypass and hypertension. He does have a non functional right lower forearm AV fistula. Was in [facility] last week for dialysis catheter placement to the right subclavian area. He is also diabetic, has CHF. Does have dialysis on M,W, F. He denies headache, nausea, diaphoresis, blood in urine or stool, does have a herniated cervical vertebral disc per his family member. Onset: Today, Sudden Onset Date: 12/04/17 Onset Time: 08:00 Duration: Intermittent Location: Reports: Back Quality: Reports: Pressure Chest Pain Score (Numeric/FACES): 0 - Related Data Allergies Allergy/AdvReac Type Severity Reaction Status Date / Time No Known Allergies Allergy Verified 12/04/17 09:22 Home Meds: Home Meds Allopurinol 100 mg PO DAILY 08/28/16 [History] Aspirin [Ecotrin] 81 mg PO DAILY 08/28/16 [History] Calcium Citrate/Vitamin D3 [Citracal + D Maximum Caplet] 1 tab PO DAILY [History] Cholecalciferol (Vitamin D3) [Vitamin D3] 1,000 unit PO DAILY 08/28/16 [History] Cyanocobalamin (Vitamin B-12) [B-12] 1 tab PO DAILY 08/28/16 [History] FA/Lycopene/Lut/MV,Ca,Iron,Min [Centrum] 1 tab PO DAILY 08/28/16 [History] Fish Oil/[place]-3 Fatty Acids [Fish Oil 1,000 MG] 1,000 mg PO DAILY 08/28/16 [ History] Fluticasone Propionate [Flonase] 1 spray NS BID 08/28/16 [History] Lutein/Minerals/Vit A,C & E [Ocuvite] 1 tab PO DAILY 08/28/16 [History] Metoprolol Tartrate 100 mg PO DAILY 08/28/16 [History] amLODIPine [Norvasc] 10 mg PO DAILY 08/28/16 [History] glipiZIDE [Glipizide] 5 mg PO ACBREAKFAST 08/28/16 [History] Multivitamin with Minerals [Multiple Vitamin] 1 tab PO DAILY 09/19/16 [History] Nitroglycerin [Nitrostat] 0.4 mg SL ASDIRECTED PRN 09/19/16 [History] atorvaSTATin Calcium [Atorvastatin Calcium] 80 mg PO BEDTIME 09/19/16 [History] Furosemide [Lasix] 20 mg PO DAILY 09/29/16 [History] Triamcinolone Acetonide [Triamcinolone Acetonide 0.1% Crm] 15 gm TOP BID [History] Past Medical History HEENT History: Reports: Cataract Cardiovascular History: Reports: CAD, High Cholesterol, Hypertension, [place] Other Cardiovascular History: coronary atherosclerosis Respiratory History: Reports: SOB Genitourinary History: Reports: Other (See Below) Other Genitourinary History: CKD stage III Musculoskeletal History: Reports: Gout Other Musculoskeletal History: compound fx of leg Psychiatric History: Reports: Dementia, Other (See Below) Other Psychiatric History: mild dementia Endocrine/Metabolic History: 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, Type II, IDDM - Past Surgical History Cardiovascular Surgical History: Reports: Coronary Artery Bypass, Other (See Below) Social & Family History - Family History Family Medical History: Noncontributory - Caffeine Use Caffeine Use: Reports: Coffee ED ROS GENERAL - Review of Systems Review Of Systems: See Below Constitutional: Reports: No Symptoms HEENT: Reports: No Symptoms Respiratory: Reports: Shortness of Breath Cardiovascular: Reports: Chest Pain Endocrine: Reports: No Symptoms GI/Abdominal: Reports: No Symptoms : Reports: No Symptoms Musculoskeletal: Reports: No Symptoms Skin: Reports: No Symptoms Neurological: Reports: No Symptoms Psychiatric: Reports: No Symptoms Hematologic/Lymphatic: Reports: No Symptoms Immunologic: Reports: No Symptoms ED EXAM, GENERAL - Physical Exam Exam: See Below Exam Limited By: No Limitations General Appearance: Alert, WD/WN, Mild Distress Eye Exam: Bilateral Eye: EOMI, Normal Inspection, PERRL Ears: Normal TMs Nose: Normal Inspection, Normal Mucosa, No Blood Throat/Mouth: Normal Inspection, Normal Lips, Normal Teeth, Normal Gums, Normal Oropharynx, Normal Voice, No Airway Compromise Head: Atraumatic, Normocephalic Neck: Normal Inspection, Supple, Non-Tender, Full Range of Motion Respiratory/Chest: No Respiratory Distress, Lungs Clear, Normal Breath Sounds, No Accessory Muscle Use, Chest Non-Tender, Other (dialysis catheter to right SC area) Cardiovascular: Normal Peripheral Pulses, Regular Rate, Rhythm, No Edema, No Gallop, No JVD, No Murmur, No Rub, Other (right lower forearm AV fistula, bruit +, thrill + ) Peripheral Pulses: 2+: Radial (L), Radial (R), Posterior Tibial (L), Posterior Tibial (R), Dorsalis Pedis (L), Dorsalis Pedis (R) GI/Abdominal: Normal Bowel Sounds, Soft, Non-Tender, No Organomegaly, No Distention, No Abnormal Bruit, No Mass Back Exam: Normal Inspection, Full Range of Motion, NT Extremities: Normal Inspection, Normal Range of Motion, Non-Tender, Normal Capillary Refill, No Pedal Edema Neurological: Alert, Oriented, CN II-XII Intact, Normal Cognition, Normal Gait, Normal Reflexes, No Motor/Sensory Deficits, Other (he does appear to be forgetful when answering questions.) Psychiatric: Normal Affect, Normal Mood Skin Exam: Warm, Dry, Intact, Normal Color, No Rash Lymphatic: No Adenopathy Course - Vital Signs Last Recorded V/S: Last Vital Signs Temp 37.2 C 12/04/17 09:17 Pulse 87 12/04/17 09:17 Resp 14 12/04/17 09:17 BP 124/56 L 12/04/17 09:17 Pulse Ox 99 12/04/17 09:17 - Orders/Labs/Meds Orders: Active Orders 24 hr Category Date Time Status EKG Documentation Completion [RC] ROUTINE Care 12/04/17 09:21 Active Chest 1V Frontal [CR] Stat Exams 12/04/17 09:21 Taken Magnesium Sulfate/Water [Magnesium Sulfate 2 GM in Med 12/04/17 10:26 Active Water 50 ML] 2 gm Premix Bag 1 bag IV ONETIME Sodium Chloride 0.9% [Saline Flush] Med 12/04/17 09:21 Active 10 ml FLUSH ASDIRECTED PRN Saline Lock Insert [OM.PC] Routine Oth 12/04/17 09:21 Ordered Medication Orders Magnesium Sulfate 2 gm/ Premix 50 mls @ 25 mls/hr IV ONETIME ONE Stop: 12/04/17 12:25 Last Admin: 12/04/17 10:37 Dose: 25 mls/hr Sodium Chloride (Saline Flush) 10 ml FLUSH ASDIRECTED PRN PRN Reason: Keep Vein Open Last Admin: 12/04/17 10:27 Dose: 10 ml Labs: Laboratory Tests 12/04/17 12/04/17 12/04/17 Range/Units 09:25 09:25 09:25 WBC 10.3 H (4.0-10.0) x10^3/uL RBC 2.17 L (4.5-6.0) x10^6/uL Hgb 7.2 L* D (14.0-18.0) g/dL Hct 22.5 L (40.0-52.0) % MCV 103.7 H D (78.0-93.0) fL MCH 33.2 H (26.0-32.0) pg MCHC 32.0 (32.0-36.0) g/dL RDW Coeff of Mario 14.5 (10.0-15.0) % Plt Count 217 (130-400) x10^3/uL Add Manual Diff Yes Neutrophils % (Manual) 74 (50-80) % Band Neutrophils % 2 (0-6) % Lymphocytes % (Manual) 11 L (25-50) % Monocytes % (Manual) 5 (2-11) % Eosinophils % (Manual) 7 H (0-4) % Basophils % (Manual) 1 (0-1) % Hypersegmented Neuts Few H Toxic Granulation 2+ moderate H Giant Platelets Rare H Polychromasia 1+ slight H Anisocytosis 1+ slight H Macrocytosis 2+ moderate H Tear Drop Cells Rare Ovalocytes 1+ slight H Acanthocytes (Spur) Rare PT 10.2 (9.6-11.4) SEC INR 1.0 L (2.0-3.5) Sodium 137 (136-145) mmol/L Potassium 3.6 (3.5-5.1) mmol/L Chloride 99 (98-107) mmol/L Carbon Dioxide 25 (21-32) mmol/L Anion Gap 16.6 (10-20) mmol/L BUN 51 H (7-18) mg/dL Creatinine 7.6 H* D (0.70-1.30) mg/dL Est Cr Clr Drug Dosing 6.88 mL/min Estimated GFR (MDRD) 7 Glucose 108 H (74-106) mg/dL Calcium 8.0 L (8.5-10.1) mg/dL Corrected Calcium 8.48 L (8.5-10.1) mg/dL Magnesium 1.7 L (1.8-2.4) mg/dL Total Bilirubin 0.6 (0.2-1.0) mg/dL AST 19 (15-37) U/L ALT 21 (16-63) U/L Alkaline Phosphatase 49 (46-116) U/L Creatine Kinase 114 (39-308) U/L POC Troponin I (0.00-0.08) ng/mL NT-Pro-B Natriuret Pep 44805 H (<=450) pg/mL Total Protein 6.3 L (6.4-8.2) g/dL Albumin 3.4 (3.4-5.0) g/dL Globulin 2.9 Albumin/Globulin Ratio 1.17 Triglycerides 126 (0-149) mg/dL Cholesterol 107 (0-199) mg/dL LDL Cholesterol, Calc 40 (0-130) mg/dL HDL Cholesterol 42 (40-59) mg/dL TSH, Ultra Sensitive 2.096 (0.358-3.74) uIU/mL POC Result Comm Blood Type Gel Antibody Screen Crossmatch 12/04/17 12/04/17 12/04/17 Range/Units 09:25 09:25 09:32 WBC (4.0-10.0) x10^3/uL RBC (4.5-6.0) x10^6/uL Hgb (14.0-18.0) g/dL Hct (40.0-52.0) % MCV (78.0-93.0) fL MCH (26.0-32.0) pg MCHC (32.0-36.0) g/dL RDW Coeff of Mario (10.0-15.0) % Plt Count (130-400) x10^3/uL Add Manual Diff Neutrophils % (Manual) (50-80) % Band Neutrophils % (0-6) % Lymphocytes % (Manual) (25-50) % Monocytes % (Manual) (2-11) % Eosinophils % (Manual) (0-4) % Basophils % (Manual) (0-1) % Hypersegmented Neuts Toxic Granulation Giant Platelets Polychromasia Anisocytosis Macrocytosis Tear Drop Cells Ovalocytes Acanthocytes (Spur) PT (9.6-11.4) SEC INR (2.0-3.5) Sodium (136-145) mmol/L Potassium (3.5-5.1) mmol/L Chloride (98-107) mmol/L Carbon Dioxide (21-32) mmol/L Anion Gap (10-20) mmol/L BUN (7-18) mg/dL Creatinine (0.70-1.30) mg/dL Est Cr Clr Drug Dosing mL/min Estimated GFR (MDRD) Glucose (74-106) mg/dL Calcium (8.5-10.1) mg/dL Corrected Calcium (8.5-10.1) mg/dL Magnesium (1.8-2.4) mg/dL Total Bilirubin (0.2-1.0) mg/dL AST (15-37) U/L ALT (16-63) U/L Alkaline Phosphatase (46-116) U/L Creatine Kinase (39-308) U/L POC Troponin I 1.49 H* 1.49 H* (0.00-0.08) ng/mL NT-Pro-B Natriuret Pep (<=450) pg/mL Total Protein (6.4-8.2) g/dL Albumin (3.4-5.0) g/dL Globulin Albumin/Globulin Ratio Triglycerides (0-149) mg/dL Cholesterol (0-199) mg/dL LDL Cholesterol, Calc (0-130) mg/dL HDL Cholesterol (40-59) mg/dL TSH, Ultra Sensitive (0.358-3.74) uIU/mL POC Result Comm Called critical res Blood Type Cancelled Gel Antibody Screen Cancelled Crossmatch See Detail Meds: Medications Generic Name Dose Route Start Last Admin Trade Name Freq PRN Reason Stop Dose Admin Magnesium Sulfate 2 gm/ Premix 50 mls @ 25 mls/hr 12/04/17 10:26 12/04/17 10: 37 IV 12/04/17 12:25 25 mls/hr ONETIME ONE Administration Sodium Chloride 10 ml 12/04/17 09:21 12/04/17 10:27 Saline Flush FLUSH 10 ml ASDIRECTED PRN Administration Keep Vein Open Discontinued Medications Generic Name Dose Route Start Last Admin Trade Name Zonia PRN Reason Stop Dose Admin Ceftriaxone Sodium 1 gm 12/04/17 10:11 12/04/17 10:27 Rocephin IVPUSH 12/04/17 10:12 1 gm STAT ONE Administration Sodium Chloride 1,000 mls @ 500 mls/hr 12/04/17 09:30 Normal Saline IV ASDIRECTED SAJAN - Re-Assessments/Exams Free Text/Narrative Re-Assessment/Exam: 12/04/17 10:[address] After report [address] to [address] Cho, radiology report returned with left lower lobe infiltrate. Will give 1 GM rocephin IV before transfer. No ASA given here due to low hgb with unknown causation. Magnesium 1.7, creatinine 7.6, GFR 7, BNP 29039 Departure - Departure Time of Disposition: 10:55 Disposition: DC/Tfer to [facility] Reason for Transfer *Q: Other Condition: Good Clinical Impression: Elevated troponin level Referrals: Julieta Bermudez DO [Physician] - Forms: ED Department Discharge, Interfacility Transfer [facility] ED Communication - Discussed Case With (1) Discussed Case With (1): Admitting Provider (Report called to Dr. Cho at [facility]. He did accept patient for further diagnostic work up.) - My Orders Last 24 Hours: My Active Orders 12/04/17 09:21 EKG Documentation Completion [RC] ROUTINE Chest 1V Frontal [CR] Stat Sodium Chloride 0.9% [Saline Flush] 10 ml FLUSH ASDIRECTED PRN Saline Lock Insert [OM.PC] Routine 12/04/17 10:26 Magnesium Sulfate/Water [Magnesium Sulfate 2 GM in Water 50 ML] 2 gm Premix Bag 1 bag IV ONETIME - Assessment/Plan Last 24 Hours: My Active Orders 12/04/17 09:21 EKG Documentation Completion [RC] ROUTINE Chest 1V Frontal [CR] Stat Sodium Chloride 0.9% [Saline Flush] 10 ml FLUSH ASDIRECTED PRN Saline Lock Insert [OM.PC] Routine 12/04/17 10:26 Magnesium Sulfate/Water [Magnesium Sulfate 2 GM in Water 50 ML] 2 gm Premix Bag 1 bag IV ONETIME
[2017-12-04 10:04] LABS: ANION GAP 16.6 mmol/L (10-20)
[2017-12-04] MEDS: cefTRIAXone 1 GM Vial IVPUSH ONE (10:27)
[2017-12-04] MEDS: Sodium Chloride 0.9% 10 ML Syringe FLUSH PRN (10:27)
[2017-12-04] MEDS: Magnesium Sulfate/Water 2 GM in Premix Bag 1 BAG IV ONE (10:37)
[2017-12-04 11:01] VITALS: BP 124/56
== END 2017-12-04 11:03 | disposition short-term general hospital (02) ==
LOC: VM.ED 09:01
DX: R79.89 Other specified abnormal findings of blood chemistry (principal); I12.9 Hypertensive chronic kidney disease with stage 1 through stage 4 chronic kidney disease, or unspecified chronic kidney disease; E11.22 Type 2 diabetes mellitus with diabetic chronic kidney disease; N18.3 Chronic kidney disease, stage 3 (moderate); E78.00 Pure hypercholesterolemia, unspecified; Z79.82 Long term (current) use of aspirin; Z79.84 Long term (current) use of oral hypoglycemic drugs; Z79.899 Other long term (current) drug therapy
CPT/HCPCS: 36415; 71045; 80053; 80061; 82550; 83735; 83880; 84443; 84484; 85025; 85610; 93005; 96365; 96375; 99285; 99285-GF; J0696; J3475; J7050

== ENCOUNTER 2019-05-16 11:00 | Emergency (ER) | payer MEDICARE, BC ==
[2019-05-16] MEDS ORDERED: Sodium Chloride 0.9% 10 ML Syringe FLUSH PRN (11:28)
--- NOTE | 2019-05-16 11:53 | CR ---
[id number] RAD/RAD Chest PA or AP 1V EXAM: FRONTAL CHEST INDICATION: Chest pain and shortness of breath. COMPARISON: December 04, 2017. DISCUSSION: Left base opacity. This likely represents combination of volume loss and pleural fluid, but underlying infiltrates and other pathology could be obscured. Prior sternotomy. Stable cardiomegaly without evidence of pulmonary edema. IMPRESSION: 1. Small left pleural effusion with associated left base atelectasis. Rubén Henderson MD 05/16/19 [id number] Thank you for allowing us to participate in the care of your patient.
--- NOTE | 2019-05-16 12:25 | EDM.PDOC ---
ED HPI GENERAL MEDICAL PROBLEM - General Chief Complaint: Respiratory Problem Stated Complaint: LIGHT HEADED SOB Time Seen by Provider: 05/16/19 11:00 Source of Information: Reports: Patient History Limitations: Reports: No Limitations - History of Present Illness INITIAL COMMENTS - FREE TEXT/NARRATIVE: Pt. presents to ER with complaints of chest pain, shortness of breath, and lightheaded for several days. Pt. has a history of CAD with severe atherosclerosis with lesions that are not able to be dealt with non-invasively. Pt. is also not a candidate for bypass. He has a history of CAD and has hemodialysis 3 days a week. He has not been experiencing any fever or chills. Denies any nausea, vomiting, or diarrhea. Pt. states that he felt "funny in the head" (pt. describes this as dizziness) and he states that he took a nitro before coming to the ER and relates that the chest pain and shortness of breath were resolved on arrival to ER. He denies any palpitations or racing heart. 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 - Related Data Allergies Allergy/AdvReac Type Severity Reaction Status Date / Time No Known Allergies Allergy Verified 05/16/19 11:59 Home Meds: Home Meds Aspirin [Ecotrin EC] 81 mg PO DAILY 08/28/16 [History] Calcium Citrate/Vitamin D3 [Citracal + D Maximum Caplet] 1 tab PO DAILY [History] Cholecalciferol (Vitamin D3) [Vitamin D3] 1,000 unit PO DAILY 08/28/16 [History] Cyanocobalamin (Vitamin B-12) [B-12] 1 tab PO DAILY 08/28/16 [History] FA/Lycopene/Lut/MV,Ca,Iron,Min [Centrum] 1 tab PO DAILY 08/28/16 [History] Fish Oil/[place]-3 Fatty Acids [Fish Oil 1,000 MG] 1,000 mg PO DAILY 08/28/16 [ History] Fluticasone Propionate [Flonase] 1 spray NS BID 08/28/16 [History] Lutein/Minerals/Vit A,C & E [Ocuvite] 1 tab PO DAILY 08/28/16 [History] Metoprolol Tartrate 100 mg PO DAILY 08/28/16 [History] allopurinoL [Allopurinol] 100 mg PO DAILY 08/28/16 [History] amLODIPine [Norvasc] 10 mg PO DAILY 08/28/16 [History] glipiZIDE [Glipizide] 5 mg PO ACBREAKFAST 08/28/16 [History] Multivitamin with Minerals [Multiple Vitamin] 1 tab PO DAILY 09/19/16 [History] Nitroglycerin [Nitrostat] 0.4 mg SL ASDIRECTED PRN 09/19/16 [History] atorvaSTATin Calcium [Atorvastatin Calcium] 80 mg PO BEDTIME 09/19/16 [History] Furosemide [Lasix] 20 mg PO DAILY 09/29/16 [History] Triamcinolone Acetonide [Triamcinolone Acetonide 0.1% Crm] 15 gm TOP BID [History] Past Medical History HEENT History: Reports: Cataract Cardiovascular History: Reports: CAD, High Cholesterol, Hypertension, [place] Other Cardiovascular History: coronary atherosclerosis Respiratory History: Reports: SOB Genitourinary History: Reports: Other (See Below) Other Genitourinary History: CKD stage III Musculoskeletal History: Reports: Gout Other Musculoskeletal History: compound fx of leg Psychiatric History: Reports: Dementia, Other (See Below) Other Psychiatric History: mild dementia Endocrine/Metabolic History: 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, Type II, IDDM - Past Surgical History Cardiovascular Surgical History: Reports: Coronary Artery Bypass, Other (See Below) Social & Family History - Family History Family Medical History: Noncontributory - Caffeine Use Caffeine Use: Reports: Coffee ED ROS GENERAL - Review of Systems Review Of Systems: See Below Constitutional: Reports: No Symptoms HEENT: Reports: No Symptoms Respiratory: Reports: Shortness of Breath Cardiovascular: Reports: Chest Pain Endocrine: Reports: No Symptoms GI/Abdominal: Reports: No Symptoms : Reports: No Symptoms Musculoskeletal: Reports: No Symptoms Skin: Reports: No Symptoms Neurological: Reports: No Symptoms Psychiatric: Reports: No Symptoms Hematologic/Lymphatic: Reports: No Symptoms Immunologic: Reports: No Symptoms ED EXAM, GENERAL - Physical Exam Exam: See Below Exam Limited By: No Limitations General Appearance: Alert, WD/WN, No Apparent Distress Nose: Normal Inspection, No Blood Throat/Mouth: Normal Inspection, Normal Lips, Normal Teeth, Normal Gums, Normal Oropharynx, Normal Voice, No Airway Compromise Head: Atraumatic, Normocephalic Neck: Normal Inspection, Supple, Non-Tender, Full Range of Motion Respiratory/Chest: No Respiratory Distress, Lungs Clear, Normal Breath Sounds, No Accessory Muscle Use, Chest Non-Tender Cardiovascular: Normal Peripheral Pulses, No Edema, No Gallop, No JVD, No Murmur , No Rub, Irregularly Irregular Peripheral Pulses: 4+: Radial (L) GI/Abdominal: Soft, Non-Tender, No Organomegaly (Male) Exam: Deferred Rectal (Males) Exam: Deferred Back Exam: Normal Inspection Extremities: Normal Inspection, Non-Tender Neurological: Alert, Oriented, CN II-XII Intact, Normal Cognition, Normal Gait, Normal Reflexes, No Motor/Sensory Deficits EKG INTERPRETATION Rhythm: A-Fib Comparison: Change From Previous EKG Course - Vital Signs Last Recorded V/S: Last Vital Signs Temp 36.6 C 05/16/19 11:00 Pulse 95 05/16/19 11:00 Resp 20 05/16/19 11:00 BP 95/51 L 05/16/19 11:00 Pulse Ox 96 05/16/19 11:00 - Orders/Labs/Meds Orders: Active Orders 24 hr Category Date Time Status EKG Documentation Completion [RC] STAT Care 05/16/19 11:28 Active Sodium Chloride 0.9% [Saline Flush] Med 05/16/19 11:28 Active 10 ml FLUSH ASDIRECTED PRN Blood Culture x2 Reflex Set [OM.PC] Stat Oth 05/16/19 11:29 Ordered Peripheral IV Insertion Adult [OM.PC] Routine Oth 05/16/19 11:28 Ordered Medication Orders Sodium Chloride (Saline Flush) 10 ml FLUSH ASDIRECTED PRN PRN Reason: Keep Vein Open Labs: Laboratory Tests 05/16/19 05/16/19 05/16/19 Range/Units 11:49 11:49 11:49 WBC 10.6 H (4.0-10.0) x10^3/uL RBC 2.88 L (4.5-6.0) x10^6/uL Hgb 9.4 L D (14.0-18.0) g/dL Hct 29.1 L (40.0-52.0) % MCV 101.0 H (78.0-93.0) fL MCH 32.6 H (26.0-32.0) pg MCHC 32.3 (32.0-36.0) g/dL RDW Coeff of Mario 14.2 (10.0-15.0) % Plt Count 220 (130-400) x10^3/uL Neut % (Auto) 80.4 H (50.0-80.0) % Lymph % (Auto) 9.1 L (25.0-50.0) % Sharp % (Auto) 8.1 (2.0-11.0) % Eos % (Auto) 2.0 (0.0-4.0) % Baso % (Auto) 0.4 (0.2-1.2) % PT 11.4 (10.0-12.8) SEC INR 1.0 L (2.0-3.5) Sodium 142 (136-145) mmol/L Potassium 4.2 (3.5-5.1) mmol/L Chloride 99 (98-107) mmol/L Carbon Dioxide 34 H (21-32) mmol/L Anion Gap 13.2 (10-20) mmol/L BUN 27 H (7-18) mg/dL Creatinine 5.2 H* D (0.70-1.30) mg/dL Est Cr Clr Drug Dosing TNP Estimated GFR (MDRD) 11 Glucose 149 H (74-106) mg/dL Calcium 9.8 D (8.5-10.1) mg/dL Corrected Calcium 10.36 H D (8.5-10.1) mg/dL Phosphorus 3.4 (2.6-4.7) mg/dL Magnesium 2.1 (1.8-2.4) mg/dL Total Bilirubin 0.8 (0.2-1.0) mg/dL AST 14 L (15-37) U/L ALT 20 (16-63) U/L Alkaline Phosphatase 62 (46-116) U/L Troponin I 0.079 H* (<=0.056) ng/mL C-Reactive Protein 0.9 (<=0.9) mg/dL NT-Pro-B Natriuret Pep 10658 H (<=450) pg/mL Total Protein 7.0 (6.4-8.2) g/dL Albumin 3.3 L (3.4-5.0) g/dL Globulin 3.7 Albumin/Globulin Ratio 0.89 Meds: Medications Generic Name Dose Route Start Last Admin Trade Name Freq PRN Reason Stop Dose Admin Sodium Chloride 10 ml 05/16/19 11:28 Saline Flush FLUSH ASDIRECTED PRN Keep Vein Open Departure - Departure Time of Disposition: 13:07 Disposition: Home, Self-Care 01 Condition: Good Clinical Impression: Atrial fibrillation with controlled ventricular response - Discharge Information Instructions: Atrial Fibrillation, [id number] Referrals: Quita Madrid MD [Primary Care Provider] - Forms: ED Department Discharge Additional Instructions: Make sure you get up slowly when going from lying to sitting and sitting to standing. Due to the fact that you are on dialysis, anticoagulation is not indicated for your irregular heart rhythm. Recheck in clinic in 10-14 days. Sepsis Event Note - Focused Exam Vital Signs: Vital Signs Temp Pulse Resp BP Pulse Ox 05/16/19 11:00 36.6 C 95 20 95/51 L 96 Date Exam was Performed: 05/16/19 Time Exam was Performed: 13:07 - My Orders Last 24 Hours: My Active Orders 05/16/19 11:28 EKG Documentation Completion [RC] STAT Sodium Chloride 0.9% [Saline Flush] 10 ml FLUSH ASDIRECTED PRN Peripheral IV Insertion Adult [OM.PC] Routine 05/16/19 11:29 Blood Culture x2 Reflex Set [OM.PC] Stat - Assessment/Plan Last 24 Hours: My Active Orders 05/16/19 11:28 EKG Documentation Completion [RC] STAT Sodium Chloride 0.9% [Saline Flush] 10 ml FLUSH ASDIRECTED PRN Peripheral IV Insertion Adult [OM.PC] Routine 05/16/19 11:29 Blood Culture x2 Reflex Set [OM.PC] Stat Plan: Make sure you get up slowly when going from lying to sitting and sitting to standing. Due to the fact that you are on dialysis, anticoagulation is not indicated for your irregular heart rhythm. Recheck in clinic in 10-14 days.
[2019-05-16 12:29] LABS: CHLORIDE,CL 99 mmol/L (98-107); SODIUM,NA 142 mmol/L (136-145)
[2019-05-16 12:31] LABS: ANION GAP 13.2 mmol/L (10-20)
[2019-05-16 13:51] VITALS: BP 93/49; PULSE 83
== END 2019-05-16 13:28 | disposition home or self-care (01) ==
LOC: VM.ED 11:00
DX: I48.91 Unspecified atrial fibrillation (principal); E11.22 Type 2 diabetes mellitus with diabetic chronic kidney disease; I12.9 Hypertensive chronic kidney disease with stage 1 through stage 4 chronic kidney disease, or unspecified chronic kidney disease; N18.3 Chronic kidney disease, stage 3 (moderate); I25.2 Old myocardial infarction; Z79.82 Long term (current) use of aspirin; Z79.899 Other long term (current) drug therapy
CPT/HCPCS: 36415; 71045; 80053; 83735; 83880; 84100; 84484; 85025; 85610; 86140; 93005; 99285-25

== ENCOUNTER 2019-06-24 17:25 | Observation (INO) | payer MEDICARE, BC ==
[2019-06-24] MEDS ORDERED: Sodium Chloride 0.9% 10 ML Syringe FLUSH PRN (17:44)
[2019-06-24] MEDS: Apixaban 2.5 MG Tab PO SCH (21:13)
[2019-06-24] MEDS ORDERED: atorvaSTATin 40 MG Tab PO SCH (21:33)
[2019-06-24] MEDS ORDERED: Nitroglycerin 0.4 MG Tab.SL SL PRN (21:33)
[2019-06-24] MEDS ORDERED: Isosorbide Mononitrate 30 MG Tab.ER PO SCH (21:37)
--- NOTE | 2019-06-25 00:09 | HP ---
CHIEF COMPLAINT: Shortness of breath and feeling lightheaded over the past 2-3 weeks. HISTORY OF PRESENT ILLNESS: Because of shortness of breath, his Imdur was increased, but then he felt Monday he was lightheaded. He was quite hypotensive at dialysis. They decreased his Imdur to 30 mg. He states he maybe feels a little bit better since then. He has no chest pain, but he does have a known history of coronary artery disease as outlined in my last visit with him. He has CABG, and in 2016, he had an angiogram showing that [place] arteries were occluded and no interventions could be done. He was recommended for medical management. He was on amlodipine. This was stopped in April due to hypotension. He had an ER visit and he was in AFib. He did not start the Eliquis yet because he was getting some like sebaceous cysts removed from his back. The patient has not had any cough. He has not had any fevers. He has been sitting more, so has developed some slight sores on his buttocks. He is always getting midodrine when he goes to dialysis. In fact, I talked to the dialysis nurse today. The patient gained 5 pounds since last week. At times, he is gasping for air just walking across the room and then other times he does not have that happen. Just sitting here right now, he feels comfortable. He is not short of breath. He does not have any leg swelling. Otherwise, he is here with his daughter. His EKG did show a bigeminy today, which was new. Lab work was requested on dialysis. His high-sensitivity troponin was 100. Therefore, recommendations were made for admission for serial troponins. ALLERGIES: None. MEDICATION LIST: Reviewed. Included the Imdur 30 mg in the evening, calcium and vitamin D, Glucotrol 5 mg with breakfast, Toprol 150 daily, Eliquis 2.5 b.i.d., again he has not started yet, allopurinol 100, nitro p.r.n., Bactroban ointment, PhosLo, bisacodyl laxatives, Lipitor 80 mg at bedtime, naproxen 220 two times a day as needed. Did not confirm with the patient whether he takes or not as he is on dialysis. Colace, Flonase, aspirin 162 daily, multivitamin, vitamin D, iron per Nephrology, triamcinolone cream, B12 daily, and omega-3 1000 daily. PAST MEDICAL HISTORY: Includes essential hypertension, but now with hypotension on dialysis, coronary artery disease with previous non-ST elevation DC last in 2017 with angiogram, chronic diastolic heart failure. His EF is known to be 60%. He was taken off Lasix because he is no longer making urine. 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 PAST SURGICAL HISTORY: The patient has had a coronary artery bypass surgery x4, AV fistulas on the right arm. FAMILY HISTORY: Both parents are . His father at 63 of coronary artery disease. His mother was 93. SOCIAL HISTORY: The patient is . 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 He has 3 children. He quit smoking in the past. REVIEW OF SYSTEMS: General: Weight went up slightly, but he has not had more swelling. No fever or chills. HEENT: No sore throat. Cardiac: No chest pains, but he has been short of breath more so when he gets up and walks around. He has not noticed any fast heart rates or palpitations. Respiratory: No cough, no wheezing. Abdomen: No nausea, vomiting, or diarrhea. Neurologic: He has felt dizzy or more orthostatic upon standing. Otherwise, all systems reviewed and found to be negative unless otherwise stated. PHYSICAL EXAMINATION: Vital signs: On admission to the hospital, 90.85 kg, temperature 97.3, pulse 84, blood pressure 112/56, respiratory rate 24, and O2 of 97% on room air. His weight was actually 96 kg prior to dialysis this morning in the clinic. General: He is in no acute distress. Heart: Irregularly irregular sounding rhythm. No murmur today was appreciated. Abdomen: Nondistended, nontender. Lungs: Sounds are clear to auscultation bilaterally without crackles or wheezes. Extremities: Warm and dry. There is no edema. Carotid pulses are 2+ bilaterally. Mental status: He is alert. He is orientated x3. Answers questions appropriately. DIAGNOSTIC DATA: EKG does show some bigeminy. There are some ST abnormalities in the inferolateral, which were present when compared to previous [place] EKGs, but the bigeminy is new. His chest x-ray does not show any significant pulmonary edema, just some mild left small pleural effusion. LABORATORY DATA: His white count mildly elevated at 11.7, hemoglobin 9.6, platelets were 217. His glucose 139, BUN 51, creatinine 8.2, sodium 136, potassium 4.4, chloride 93, bicarb 27, calcium 9.6, magnesium level was 2.5. ProBNP from the clinic side is pending. However, on the hospital side, it was 13,587. Troponin was 100, high sensitivity, but repeated when he returned from dialysis for observation at 6:20 was 0.017, normal. ASSESSMENT: 1. Shortness of breath and dizziness. These are ongoing symptoms. However, the patient initially had an elevated troponin, so was admitted to observation for an elevation myocardial infarction. We did avoid any Lovenox given his renal failure or heparin due to the fact he was starting Eliquis. We will repeat a troponin in the morning to see if it becomes elevated. We will have him up and moving with assistance. We will monitor him on telemetry overnight, see if he has any fast heart rates or needs any medication adjustments for that. 2. Coronary artery disease of his [place] arteries with history of bypass. He is having shortness of breath, possibly his angina equivalent. Adjustments in Imdur have been difficult due to hypotension. We will continue the same doses and see how he does with the telemetry. 3. Dizziness due to orthostasis. We are not able to increase his Toprol at this point. His Imdur has been decreased recently and this has helped some. 4. Type 2 diabetes, diet controlled with some retinopathy, not on long-term insulin. We will do q.i.d. Accu-Cheks just to see that hypoglycemia is not contributing. Due to the fact that he is on glipizide and given his renal failure, he could potentially be at risk for hypoglycemia from it. 5. Iron deficiency anemia and anemia due to chronic kidney disease. His hemoglobin is around his baseline at 9.6. His baseline is around 10. We will repeat in the morning. 6. Obesity. 7. Chronic diastolic heart failure. This seems to be managed fluid lewis by dialysis. He had a run today. His breathing was a little better when he got back, but his dizziness was worse. 8. Atrial fibrillation. He was currently in a bigeminal rhythm. We will monitor him on telemetry overnight and make medication adjustments if indicated. 9. End-stage renal disease, on dialysis. He is on observation. He will be likely discharged home or transferred before his next dialysis run. PLAN: At this point, the patient is admitted for observation status and troponin monitoring and heart rate monitoring to see if he has any cardiac events. He has a complicated medical history and he and his daughter both aware that there are no easy fixes for his heart problem. His licensed midwife was also contacted along with his primary care. For DVT prophylaxis, he will be given Eliquis. He also needs his sutures removed from his cyst removal tomorrow. The sores on his buttocks, which were present on admission were examined by myself in the clinic. Looks like just a little shear injury to the mid buttock on each side of his gluteal cleft. I recommended a barrier cream and offloading for this. MKA: 06/24/2019 22:08:16 MODL: 06/25/2019 00:04:20 /[id number] JESUS
[2019-06-25 07:08] LABS: ANION GAP 15.2 mmol/L (10-20)
[2019-06-25] MEDS ORDERED: Metoprolol Succinate 50 MG Tab.ER PO SCH (08:00)
[2019-06-25] MEDS ORDERED: glipiZIDE 5 MG Tab PO SCH (08:00)
[2019-06-25] MEDS ORDERED: Aspirin 81 MG Tab.EC PO SCH (08:00)
[2019-06-25] MEDS ORDERED: Allopurinol 100 MG Tab PO SCH (08:00)
[2019-06-25] MEDS ORDERED: Calcium Acetate 667 MG Cap PO SCH (08:00)
--- NOTE | 2019-06-25 08:35 | PCM.SN ---
- Free Text/Narrative Note: Patient is feeling much better this morning. Feels essentially back to his normal self. Was able to walk the hallway with PT without any shortness of breath or lightheadedness. Rates ok overnight but higher this morning, likely related to activity. Troponin did increase slightly overnight. Will recheck again at 11. If stable or downtrending, will d/c home today. If increasing further, will contact cardiology to determine what they recommend as next steps.
[2019-06-25] MEDS: Apixaban 2.5 MG Tab PO SCH (08:51)
[2019-06-25 10:38] VITALS: BP 101/53; PULSE 88
--- NOTE | 2019-06-25 13:11 | PCM.DCSUM1 ---
Discharge Summary - Hospital Course Brief History: Mr. Goldberg is an 88 yo male who was admitted for observation after presenting to clinic yesterday with increased shortness of breath and then returning with lightheadedness after dialysis yesterday. - Discharge Data Discharge Date: 06/25/19 Discharge Disposition: Home, Self-Care 01 Condition: Good - Referral to Home Health Primary Care Physician: Quita Madrid MD - Discharge Diagnosis/Problem(s) (1) Elevated troponin level SNOMED Code(s): 838162846, 024316336, 530776777 ICD Code: R74.8 - ABNORMAL LEVELS OF OTHER SERUM ENZYMES Status: Acute Current Visit: No (2) Atrial fibrillation with controlled ventricular response SNOMED Code(s): 616169080 ICD Code: I48.91 - UNSPECIFIED ATRIAL FIBRILLATION Status: Chronic Current Visit: No (3) CAD (coronary artery disease) SNOMED Code(s): 37918370 ICD Code: I25.10 - ATHSCL HEART DISEASE OF [place] CORONARY ARTERY W/O ANG PCTRS Status: Chronic Current Visit: Yes Qualifiers: Coronary Disease-Associated Artery/Lesion type: [place] artery [place] vs. transplanted heart: [place] heart Associated angina: without angina Qualified Code(s): I25.10 - Atherosclerotic heart disease of [place] coronary artery without angina pectoris (4) ESRD (end stage renal disease) on dialysis SNOMED Code(s): 215844960 ICD Code: N18.6 - END STAGE RENAL DISEASE; Z99.2 - DEPENDENCE ON RENAL DIALYSIS Status: Chronic Current Visit: Yes (5) Diabetes SNOMED Code(s): 10139522 ICD Code: E11.9 - TYPE 2 DIABETES MELLITUS WITHOUT COMPLICATIONS Status: Chronic Current Visit: Yes Qualifiers: Diabetes mellitus type: type 2 Diabetes mellitus stitchdown thread laster insulin use: without stitchdown thread laster use Diabetes mellitus complication status: with kidney complications Diabetes mellitus complication detail: with chronic kidney disease (6) CHF (congestive heart failure) SNOMED Code(s): 17641971 ICD Code: I50.9 - HEART FAILURE, UNSPECIFIED Status: Chronic Priority: Low Current Visit: No Qualifiers: Heart failure type: unspecified Heart failure chronicity: chronic Qualified Code(s): I50.9 - Heart failure, unspecified - Patient Summary/Data Operative Procedure(s) Performed: none Complications: none Consults: Consultations 06/24/19 17:44 PT Evaluation and Treatment [CONS] Routine Labs Pending at D/C: none Recommended Follow-up Testing/Procedures: none Planned Operative Procedure(s) after DC: none Hospital Course: Patient was admitted for observation after his troponin yesterday morning returned elevated. This was negative last evening and then increased overnight. Repeat later this morning was stable. He has been completely asymptomatic since admission. His vital signs have been stable and his heart rates have been well controlled. It is presumed he will do much better on the lower dose of imdur ( as changed end of last week) and consistence with his dialysis schedule. No medication adjustments were made during his hospitalization. He will be discharged home with close follow-up (06/27) in clinic. - Discharge Plan Home Medications: Home Meds Aspirin [Ecotrin EC] 81 mg PO DAILY 08/28/16 [History] Calcium Citrate/Vitamin D3 [Citracal + D Maximum [place]] 1 tab PO DAILY [History] Cholecalciferol (Vitamin D3) [Vitamin D3] 1,000 unit PO DAILY 08/28/16 [History] Fish Oil/[place]-3 Fatty Acids [Fish Oil 1,000 MG] 1,000 mg PO DAILY 08/28/16 [ History] Fluticasone Propionate [Flonase] 1 spray NS BID 08/28/16 [History] Lutein/Minerals/Vit A,C & E [Ocuvite] 1 tab PO DAILY 08/28/16 [History] allopurinoL [Allopurinol] 100 mg PO DAILY 08/28/16 [History] Multivitamin with Minerals [Multiple Vitamin] 1 tab PO DAILY 09/19/16 [History] Nitroglycerin [Nitrostat] 0.4 mg SL ASDIRECTED PRN 09/19/16 [History] atorvaSTATin Calcium [Atorvastatin Calcium] 80 mg PO BEDTIME 09/19/16 [History] Triamcinolone Acetonide [Triamcinolone Acetonide 0.1% Crm] 15 gm TOP BID [History] Calcium Acetate [PhosLo] 667 mg PO BID 06/24/19 [History] Docusate Sodium [Colace] 100 mg PO MOWEFR 06/24/19 [History] Isosorbide Mononitrate [Imdur] 30 mg PO BEDTIME 06/24/19 [History] Vit B Cmplx NO3/Fa/C/Biot/Zinc [Nephplex Rx] 1 tab PO BEDTIME 06/24/19 [History] atorvaSTATin [Lipitor] 80 mg PO BEDTIME 06/24/19 [History] Apixaban [Eliquis] 2.5 mg PO BID tablet 06/25/19 [Rx] Metoprolol Succinate [Toprol XL 50mg] 150 mg PO DAILY tab.er 06/25/19 [Rx] - Discharge Summary/Plan Comment DC Time >30 min.: No - General Info Date of Service: 06/25/19 Subjective Update: Patient is feeling great today and would really like to go home. He denies any chest pain, shortness of breath, or lightheadedness since admission. He feels back to his usual self. - Review of Systems General: Reports: No Symptoms HEENT: Reports: No Symptoms Pulmonary: Reports: No Symptoms Cardiovascular: Reports: No Symptoms Gastrointestinal: Reports: No Symptoms Genitourinary: Reports: No Symptoms Musculoskeletal: Reports: No Symptoms Skin: Reports: No Symptoms Neurological: Reports: No Symptoms - Patient Data Vitals - Most Recent: Last Vital Signs Temp 36.4 C 06/25/19 10:37 Pulse 88 06/25/19 10:37 Resp 16 06/25/19 10:37 BP 101/53 L 06/25/19 10:37 Pulse Ox 97 06/25/19 10:37 Weight - Most Recent: 90.855 kg I&O - Last 24 hours: Intake & Output 06/24/19 06/25/19 06/25/19 22:59 06:59 14:59 Intake Total 180 Balance 180 Lab Results - Last 24 hrs: Laboratory Results - last 24 hr 06/24/19 06/25/19 06/25/19 Range/Units 18:20 03:03 06:25 WBC (4.0-10.0) x10^3/uL RBC (4.5-6.0) x10^6/uL Hgb (14.0-18.0) g/dL Hct (40.0-52.0) % MCV (78.0-93.0) fL MCH (26.0-32.0) pg MCHC (32.0-36.0) g/dL RDW Coeff of Mario (10.0-15.0) % Plt Count (130-400) x10^3/uL Neut % (Auto) (50.0-80.0) % Lymph % (Auto) (25.0-50.0) % [place] % (Auto) (2.0-11.0) % Eos % (Auto) (0.0-4.0) % Baso % (Auto) (0.2-1.2) % Sodium (136-145) mmol/L Potassium (3.5-5.1) mmol/L Chloride (98-107) mmol/L Carbon Dioxide (21-32) mmol/L Anion Gap (10-20) mmol/L BUN (7-18) mg/dL Creatinine (0.70-1.30) mg/dL Est Cr Clr Drug Dosing mL/min Estimated GFR (MDRD) Glucose (74-106) mg/dL POC Glucose 101 (74-106) mg/dL Calcium (8.5-10.1) mg/dL Troponin I < 0.017 0.039 (<=0.056) ng/mL NT-Pro-B Natriuret Pep 71613 H (<=450) pg/mL 06/25/19 06/25/19 06/25/19 Range/Units 06:25 06:25 06:25 WBC 9.9 (4.0-10.0) x10^3/uL RBC 3.16 L (4.5-6.0) x10^6/uL Hgb 9.8 L (14.0-18.0) g/dL Hct 31.8 L (40.0-52.0) % MCV 100.6 H (78.0-93.0) fL MCH 31.0 (26.0-32.0) pg MCHC 30.8 L (32.0-36.0) g/dL RDW Coeff of Mario 16.1 H (10.0-15.0) % Plt Count 180 (130-400) x10^3/uL Neut % (Auto) 75.1 (50.0-80.0) % Lymph % (Auto) 12.3 L (25.0-50.0) % [place] % (Auto) 9.6 (2.0-11.0) % Eos % (Auto) 2.6 (0.0-4.0) % Baso % (Auto) 0.4 (0.2-1.2) % Sodium 142 (136-145) mmol/L Potassium 4.2 (3.5-5.1) mmol/L Chloride 99 (98-107) mmol/L Carbon Dioxide 32 (21-32) mmol/L Anion Gap 15.2 (10-20) mmol/L BUN 25 H (7-18) mg/dL Creatinine 5.0 H* (0.70-1.30) mg/dL Est Cr Clr Drug Dosing 10.07 mL/min Estimated GFR (MDRD) 11 Glucose 111 H (74-106) mg/dL POC Glucose 118 H (74-106) mg/dL Calcium 8.3 L D (8.5-10.1) mg/dL Troponin I (<=0.056) ng/mL NT-Pro-B Natriuret Pep (<=450) pg/mL 06/25/19 06/25/19 Range/Units 11:02 11:29 WBC (4.0-10.0) x10^3/uL RBC (4.5-6.0) x10^6/uL Hgb (14.0-18.0) g/dL Hct (40.0-52.0) % MCV (78.0-93.0) fL MCH (26.0-32.0) pg MCHC (32.0-36.0) g/dL RDW Coeff of Mario (10.0-15.0) % Plt Count (130-400) x10^3/uL Neut % (Auto) (50.0-80.0) % Lymph % (Auto) (25.0-50.0) % [place] % (Auto) (2.0-11.0) % Eos % (Auto) (0.0-4.0) % Baso % (Auto) (0.2-1.2) % Sodium (136-145) mmol/L Potassium (3.5-5.1) mmol/L Chloride (98-107) mmol/L Carbon Dioxide (21-32) mmol/L Anion Gap (10-20) mmol/L BUN (7-18) mg/dL Creatinine (0.70-1.30) mg/dL Est Cr Clr Drug Dosing mL/min Estimated GFR (MDRD) Glucose (74-106) mg/dL POC Glucose 134 H (74-106) mg/dL Calcium (8.5-10.1) mg/dL Troponin I 0.025 (<=0.056) ng/mL NT-Pro-B Natriuret Pep (<=450) pg/mL Med Orders - Current: Current Medications Allopurinol (Zyloprim) 100 mg PO DAILY [facility] Last Admin: 06/25/19 08:51 Dose: 100 mg Apixaban (Eliquis) 2.5 mg PO BID [facility] Last Admin: 06/25/19 08:51 Dose: 2.5 mg Aspirin (Halfprin) 81 mg PO DAILY [facility] Last Admin: 06/25/19 08:51 Dose: 81 mg Atorvastatin Calcium (Lipitor) 80 mg PO BEDTIME [facility] Last Admin: 06/24/19 22:36 Dose: 80 mg Calcium Acetate (Phoslo) 667 mg PO BID [facility] Last Admin: 06/25/19 08:51 Dose: 667 mg Glipizide (Glucotrol) 5 mg PO DAILY [facility] Last Admin: 06/25/19 08:51 Dose: 5 mg Isosorbide Mononitrate (Imdur) 30 mg PO BEDTIME [facility] Last Admin: 06/24/19 22:38 Dose: Not Given Metoprolol Succinate (Toprol Xl) 150 mg PO DAILY [facility] Last Admin: 06/25/19 08:50 Dose: 150 mg Nitroglycerin (Nitrostat) 0.4 mg SL ASDIRECTED PRN PRN Reason: Chest Pain Sodium Chloride (Saline Flush) 10 ml FLUSH ASDIRECTED PRN PRN Reason: Keep Vein Open Discontinued Medications Isosorbide Mononitrate (Imdur) 30 mg PO BEDTIME [facility] - Exam General: Reports: Alert, Cooperative, No Acute Distress HEENT: Reports: Mucous Membr. Moist/[place] Neck: Reports: Supple, Trachea Midline, No Thyromegaly. Denies: Lymphadenopathy Lungs: Reports: Clear to Auscultation, Normal Respiratory Effort Cardiovascular: Reports: Regular Rate, Regular Rhythm, No Murmurs GI/Abdominal Exam: Normal Bowel Sounds, Soft, Non-Tender, No Organomegaly, No Distention, No Mass Extremities: Non-Tender, No Pedal Edema, Normal Capillary Refill Skin: Reports: Warm, Dry, Intact
[2019-06-25] MEDS ORDERED: Isosorbide Mononitrate 30 MG Tab.ER PO SCH (20:00)
== END 2019-06-25 14:25 | disposition home or self-care (01) ==
LOC: VM.MS 17:25
PROVIDERS: ADMIT Internal Medicine; ATTEND Family Medicine
DX: R06.02 Shortness of breath (principal); R79.89 Other specified abnormal findings of blood chemistry; I13.2 Hypertensive heart and chronic kidney disease with heart failure and with stage 5 chronic kidney disease, or end stage renal disease; I50.32 Chronic diastolic (congestive) heart failure; E11.22 Type 2 diabetes mellitus with diabetic chronic kidney disease; E11.319 Type 2 diabetes mellitus with unspecified diabetic retinopathy without macular edema; N18.6 End stage renal disease; D63.1 Anemia in chronic kidney disease; D50.9 Iron deficiency anemia, unspecified; I25.10 Atherosclerotic heart disease of native coronary artery without angina pectoris; I25.2 Old myocardial infarction; I48.0 Paroxysmal atrial fibrillation; E78.5 Hyperlipidemia, unspecified; I95.1 Orthostatic hypotension; E66.01 Morbid (severe) obesity due to excess calories; Z68.30 Body mass index [BMI] 30.0-30.9, adult; Z87.891 Personal history of nicotine dependence; Z79.82 Long term (current) use of aspirin; Z79.01 Long term (current) use of anticoagulants; Z79.84 Long term (current) use of oral hypoglycemic drugs; Z79.899 Other long term (current) drug therapy; Z95.1 Presence of aortocoronary bypass graft; Z99.2 Dependence on renal dialysis
CPT/HCPCS: 36415; 80048; 82962; 83880; 84484; 85025; 97161-GP; A9270-GY; G0378; G0379

== ENCOUNTER 2019-08-08 15:07 | Observation (INO) | payer MEDICARE, BC ==
[2019-08-08] MEDS ORDERED: Sodium Chloride 0.9% 10 ML Syringe FLUSH PRN (15:23)
[2019-08-08] MEDS ORDERED: Furosemide 40 MG/4 ML VIAL IV ONE (15:28)
--- NOTE | 2019-08-08 16:02 | CR ---
[id number] RAD/RAD Chest PA or AP 1V EXAM: FRONTAL CHEST INDICATION: DYSPNEA. COMPARISON: May 16, 2019. DISCUSSION: Cardiomegaly without evidence of congestive heart failure. Left base scarring. Prior sternotomy. Possible small bilateral effusions. IMPRESSION: 1. Possible small bilateral effusions. Rubén Henderson MD 08/08/19 [id number] Thank you for allowing us to participate in the care of your patient.
[2019-08-08 16:28] LABS: CHLORIDE,CL 97 mmol/L (98-107); SODIUM,NA 139 mmol/L (136-145)
[2019-08-08 16:30] LABS: ANION GAP 15.9 mmol/L (10-20)
--- NOTE | 2019-08-08 17:04 | EDM.PDOC ---
ED HPI GENERAL MEDICAL PROBLEM - General Chief Complaint: Respiratory Problem Stated Complaint: SOB Time Seen by Provider: 08/08/19 15:10 Source of Information: Reports: Patient, Family History Limitations: Reports: No Limitations - History of Present Illness INITIAL COMMENTS - FREE TEXT/NARRATIVE: Pt. presents to ER with complaints of fatigue, weakness, and increased shortness of breath over the past several days. Pt. has a history of CKD and is on hemodialysis. He states that is due for a dialysis run tomorrow. Denies any chest pain or shortness of breath. He was recently started on oral lasix due to increased peripheral edema. Pt. denies any nausea, vomiting, or diarrhea. Daughter states that the patient has had some increased erythema to his buttocks and has a pressure sore to this area. Pt. states that he does not make a significant amount of urine. Onset Date: 08/08/19 Duration: Getting Worse Location: Reports: Generalized Associated Symptoms: Reports: Malaise, Shortness of Breath, Weakness - Related Data Allergies Allergy/AdvReac Type Severity Reaction Status Date / Time No Known Allergies Allergy Verified 08/08/19 16:24 Home Meds: Home Meds Aspirin [Ecotrin EC] 81 mg PO DAILY 08/28/16 [History] Calcium Citrate/Vitamin D3 [Citracal + D Maximum Caplet] 1 tab PO DAILY [History] Cholecalciferol (Vitamin D3) [Vitamin D3] 1,000 unit PO DAILY 08/28/16 [History] Fish Oil/Helen-3 Fatty Acids [Fish Oil 1,000 MG] 1,000 mg PO DAILY 08/28/16 [ History] Fluticasone Propionate [Flonase] 1 spray NS DAILY PRN 08/28/16 [History] Lutein/Minerals/Vit A,C & E [Ocuvite] 1 tab PO DAILY 08/28/16 [History] allopurinoL [Allopurinol] 100 mg PO DAILY 08/28/16 [History] Nitroglycerin [Nitrostat] 0.4 mg SL ASDIRECTED PRN 09/19/16 [History] Calcium Acetate [PhosLo] 1,334 mg PO TIDMEALS 06/24/19 [History] Docusate Sodium [Colace] 200 mg PO MOWEFR 06/24/19 [History] Isosorbide Mononitrate [Imdur] 30 mg PO BEDTIME 06/24/19 [History] Vit B Cmplx NO3/Fa/C/Biot/Zinc [Nephplex Rx] 1 tab PO DAILY 06/24/19 [History] atorvaSTATin [Lipitor] 80 mg PO BEDTIME 06/24/19 [History] Apixaban [Eliquis] 2.5 mg PO BID tablet 06/25/19 [Rx] Metoprolol Succinate [Toprol XL 50mg] 150 mg PO DAILY tab.er 06/25/19 [Rx] Bisacodyl [Laxative] 5 mg PO MOWEFRSA 08/08/19 [History] Cyanocobalamin (Vitamin B-12) [Vitamin B-12] 1,000 mcg PO DAILY 08/08/19 [ History] Docusate Sodium 100 mg PO SUTUTH 08/08/19 [History] Midodrine 5 mg PO ASDIRECTED PRN 08/08/19 [History] Mupirocin Cream [Bactroban Crm] 1 applic TOP TID 08/08/19 [History] Naproxen Sodium [Aleve] 220 mg PO BID PRN 08/08/19 [History] Vit B Cmplx NO3/Fa/C/Biot/Zinc [Nephplex Rx] 1 tab PO DAILY 08/08/19 [History] glipiZIDE [Glucotrol] 5 mg PO DAILY 08/08/19 [History] Fluticasone Propionate [Flonase] 1 spray NASBOTH ASDIRECTED PRN 08/09/19 [ History] Furosemide 20 mg PO DAILY 08/09/19 [History] Past Medical History HEENT History: Reports: Cataract Cardiovascular History: Reports: CAD, High Cholesterol, Hypertension, HI Other Cardiovascular History: coronary atherosclerosis Respiratory History: Reports: SOB Gastrointestinal History: Reports: None Genitourinary History: Reports: Other (See Below) Other Genitourinary History: CKD stage III Musculoskeletal History: Reports: Gout Other Musculoskeletal History: compound fx of leg Neurological History: Reports: None Psychiatric History: Reports: Dementia, Other (See Below) Other Psychiatric History: mild dementia Endocrine/Metabolic History: 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, Type II, IDDM Dermatologic History: Reports: None - Past Surgical History Cardiovascular Surgical History: Reports: Coronary Artery Bypass, Other (See Below) Social & Family History - Family History Family Medical History: Noncontributory - Caffeine Use Caffeine Use: Reports: None ED ROS GENERAL - Review of Systems Review Of Systems: See Below Constitutional: Reports: No Symptoms HEENT: Reports: No Symptoms Respiratory: Reports: Shortness of Breath Cardiovascular: Reports: Dyspnea on Exertion, Edema Endocrine: Reports: No Symptoms GI/Abdominal: Reports: No Symptoms : Reports: No Symptoms Musculoskeletal: Reports: No Symptoms Skin: Reports: No Symptoms Neurological: Reports: Weakness Psychiatric: Reports: No Symptoms Hematologic/Lymphatic: Reports: No Symptoms Immunologic: Reports: No Symptoms ED EXAM, GENERAL - Physical Exam Exam: See Below Exam Limited By: Physical Impairment General Appearance: Alert, WD/WN, No Apparent Distress Eye Exam: Bilateral Eye: EOMI, Normal Fundi, Normal Inspection, PERRL Throat/Mouth: Normal Inspection, Normal Lips, Normal Voice, No Airway Compromise Head: Atraumatic, Normocephalic Neck: Normal Inspection, Non-Tender, Full Range of Motion Respiratory/Chest: No Respiratory Distress, Lungs Clear, Normal Breath Sounds, No Accessory Muscle Use, Chest Non-Tender Cardiovascular: Normal Peripheral Pulses, Regular Rate, Rhythm, No Edema, No JVD , No Murmur Peripheral Pulses: 4+: Radial (R) GI/Abdominal: Soft, Non-Tender, Distended (chronically protuberant. No discomfort on palpation.) (Male) Exam: Deferred Rectal (Males) Exam: Deferred Back Exam: Normal Inspection, Full Range of Motion Extremities: Non-Tender, Other (trace edema, no worse than normal according to family) Neurological: Alert, Oriented, CN II-XII Intact, Normal Cognition, Normal Gait, Normal Reflexes, No Motor/Sensory Deficits Psychiatric: Normal Affect, Normal Mood Skin Exam: Warm, Dry, Intact, No Rash, Pallor, Other (Pt. has a small ulcer to his buttocks. There is some surrounding erythema but this appears to be from pressure/urine from attend. There is no warmth or obvious active infectious process noted.) Course - Vital Signs Last Recorded V/S: Last Vital Signs Temp 36.2 C 08/09/19 05:25 Pulse 60 08/09/19 08:25 Resp 19 08/09/19 05:25 BP 96/57 L 08/09/19 08:25 Pulse Ox 100 08/09/19 05:25 - Orders/Labs/Meds Orders: Active Orders 24 hr Category Date Time Status Oxygen Therapy [RC] 08,20 Care 08/08/19 15:28 Active CULTURE BLOOD [BC] Stat Lab 08/08/19 16:38 Received CULTURE BLOOD [BC] Stat Lab 08/08/19 16:44 Results UA W/MICROSCOPIC [URIN] Stat Lab 08/08/19 16:29 Ordered Sodium Chloride 0.9% [Saline Flush] Med 08/08/19 15:23 Active 10 ml FLUSH ASDIRECTED PRN Blood Culture x2 Reflex Set [OM.PC] Stat Oth 08/08/19 16:23 Ordered Peripheral IV Insertion Adult [OM.PC] Routine Oth 08/08/19 15:24 Ordered Medication Orders Allopurinol (Zyloprim) 100 mg PO DAILY [facility] Last Admin: 08/09/19 08:26 Dose: 100 mg Apixaban (Eliquis) 2.5 mg PO BID [facility] Last Admin: 08/09/19 08:25 Dose: 2.5 mg Aspirin (Halfprin) 81 mg PO DAILY [facility] Last Admin: 08/09/19 08:25 Dose: 81 mg Atorvastatin Calcium (Lipitor) 80 mg PO BEDTIME [facility] Bisacodyl (Dulcolax) 5 mg PO MOWEFRSA [facility] Calcium Acetate (Phoslo) 1,334 mg PO TIDMEALS [facility] Last Admin: 08/09/19 08:25 Dose: 1,334 mg Calcium Citrate (Calcium Citrate + D) 1 tab PO DAILY [facility] Last Admin: 08/09/19 08:27 Dose: 1 tab Cholecalciferol (Vitamin D3) 25 mcg PO DAILY [facility] Last Admin: 08/09/19 08:26 Dose: 25 mcg Cyanocobalamin (Vitamin B12) 1,000 mcg PO DAILY [facility] Last Admin: 08/09/19 08:26 Dose: 1,000 mcg Docusate Sodium (Colace) 200 mg PO MOWEFR [facility] Docusate Sodium (Colace) 100 mg PO SUTUTH [facility] Last Admin: 08/08/19 21:40 Dose: Not Given Fish Oil (Fish Oil) 1 gm PO DAILY [facility] Last Admin: 08/09/19 08:25 Dose: 1 gm Glipizide (Glucotrol) 5 mg PO DAILY [facility] Last Admin: 08/09/19 08:25 Dose: 5 mg Isosorbide Mononitrate (Imdur) 30 mg PO BEDTIME [facility] Metoprolol Succinate (Toprol Xl) 150 mg PO DAILY [facility] Last Admin: 08/09/19 08:25 Dose: 150 mg Midodrine (Midodrine) 5 mg PO DAILY [facility] Last Admin: 08/09/19 08:26 Dose: 5 mg Multivit/Ca Carb/B Cmplx/FA/Prenat (Renal Caps Softgel) 1 cap PO DAILY [facility] Last Admin: 08/09/19 10:31 Dose: Multivitamins/Minerals (Prosight) 1 tab PO DAILY [facility] Last Admin: 08/09/19 08:25 Dose: 1 tab Sodium Chloride (Saline Flush) 10 ml FLUSH ASDIRECTED PRN PRN Reason: Keep Vein Open Labs: Laboratory Tests 08/08/19 08/08/19 08/08/19 Range/Units 15:45 15:45 15:45 WBC 13.0 H (4.0-10.0) x10^3/uL RBC 3.61 L (4.5-6.0) x10^6/uL Hgb 11.3 L D (14.0-18.0) g/dL Hct 38.3 L (40.0-52.0) % MCV 106.1 H D (78.0-93.0) fL MCH 31.3 (26.0-32.0) pg MCHC 29.5 L (32.0-36.0) g/dL RDW Coeff of Mario 18.3 H (10.0-15.0) % Plt Count 190 (130-400) x10^3/uL Add Manual Diff Yes Neutrophils % (Manual) 80 (50-80) % Band Neutrophils % 2 (0-6) % Lymphocytes % (Manual) 9 L (25-50) % Monocytes % (Manual) 8 (2-11) % Eosinophils % (Manual) 1 (0-4) % Hypersegmented Neuts Few H Platelet Estimate Adequate Anisocytosis 2+ moderate H Macrocytosis 2+ moderate H Ovalocytes 1+ slight H PT 13.7 H (10.0-12.8) SEC INR 1.2 L (2.0-3.5) Sodium 139 (136-145) mmol/L Potassium 4.9 (3.5-5.1) mmol/L Chloride 97 L (98-107) mmol/L Carbon Dioxide 31 (21-32) mmol/L Anion Gap 15.9 (10-20) mmol/L BUN 37 H (7-18) mg/dL Creatinine 5.2 H* (0.70-1.30) mg/dL Est Cr Clr Drug Dosing TNP Estimated GFR (MDRD) 11 Glucose 159 H (74-106) mg/dL Lactic Acid (0.4-2.0) mmol/L Calcium 9.3 (8.5-10.1) mg/dL Corrected Calcium 9.86 (8.5-10.1) mg/dL Magnesium 2.2 (1.8-2.4) mg/dL Total Bilirubin 0.9 (0.2-1.0) mg/dL AST 22 (15-37) U/L ALT 31 (16-63) U/L Alkaline Phosphatase 78 (46-116) U/L Troponin I 0.141 H* (<=0.056) ng/mL NT-Pro-B Natriuret Pep 99218 H (<=450) pg/mL Total Protein 6.9 (6.4-8.2) g/dL Albumin 3.3 L (3.4-5.0) g/dL Globulin 3.6 Albumin/Globulin Ratio 0.92 /12/20 Range/Units 16:38 WBC (4.0-10.0) x10^3/uL RBC (4.5-6.0) x10^6/uL Hgb (14.0-18.0) g/dL Hct (40.0-52.0) % MCV (78.0-93.0) fL MCH (26.0-32.0) pg MCHC (32.0-36.0) g/dL RDW Coeff of Mario (10.0-15.0) % Plt Count (130-400) x10^3/uL Add Manual Diff Neutrophils % (Manual) (50-80) % Band Neutrophils % (0-6) % Lymphocytes % (Manual) (25-50) % Monocytes % (Manual) (2-11) % Eosinophils % (Manual) (0-4) % Hypersegmented Neuts Platelet Estimate Anisocytosis Macrocytosis Ovalocytes PT (10.0-12.8) SEC INR (2.0-3.5) Sodium (136-145) mmol/L Potassium (3.5-5.1) mmol/L Chloride (98-107) mmol/L Carbon Dioxide (21-32) mmol/L Anion Gap (10-20) mmol/L BUN (7-18) mg/dL Creatinine (0.70-1.30) mg/dL Est Cr Clr Drug Dosing Estimated GFR (MDRD) Glucose (74-106) mg/dL Lactic Acid 1.4 (0.4-2.0) mmol/L Calcium (8.5-10.1) mg/dL Corrected Calcium (8.5-10.1) mg/dL Magnesium (1.8-2.4) mg/dL Total Bilirubin (0.2-1.0) mg/dL AST (15-37) U/L ALT (16-63) U/L Alkaline Phosphatase (46-116) U/L Troponin I (<=0.056) ng/mL NT-Pro-B Natriuret Pep (<=450) pg/mL Total Protein (6.4-8.2) g/dL Albumin (3.4-5.0) g/dL Globulin Albumin/Globulin Ratio Meds: Medications Generic Name Dose Route Start Last Admin Trade Name Freq PRN Reason Stop Dose Admin Allopurinol 100 mg 08/09/19 08:00 08/09/19 08:26 Zyloprim PO 100 mg DAILY [facility] Administration Apixaban 2.5 mg 08/09/19 08:00 08/09/19 08:25 Eliquis PO 2.5 mg BID [facility] Administration Aspirin 81 mg 08/09/19 08:00 08/09/19 08:25 Halfprin PO 81 mg DAILY [facility] Administration Atorvastatin Calcium 80 mg 08/09/19 20:00 Lipitor PO BEDTIME [facility] Bisacodyl 5 mg 08/09/19 20:27 Dulcolax PO MOWEFRSA [facility] Calcium Acetate 1,334 mg 08/09/19 08:00 08/09/19 08:25 Phoslo PO 1,334 mg TIDMEALS [facility] Administration Calcium Citrate 1 tab 08/09/19 08:00 08/09/19 08:27 Calcium Citrate + D PO 1 tab DAILY [facility] Administration Cholecalciferol 25 mcg 08/09/19 08:00 08/09/19 08:26 Vitamin D3 PO 25 mcg DAILY [facility] Administration Cyanocobalamin 1,000 mcg 08/09/19 08:00 08/09/19 08:26 Vitamin B12 PO 1,000 mcg DAILY [facility] Administration Docusate Sodium 200 mg 08/09/19 20:27 Colace PO MOWEFR [facility] Docusate Sodium 100 mg 08/08/19 20:30 08/08/19 21:40 Colace PO Not Given SUTUTH [facility] Fish Oil 1 gm 08/09/19 08:00 08/09/19 08:25 Fish Oil PO 1 gm DAILY [facility] Administration Glipizide 5 mg 08/09/19 08:00 08/09/19 08:25 Glucotrol PO 5 mg DAILY [facility] Administration Isosorbide Mononitrate 30 mg 08/09/19 20:00 Imdur PO BEDTIME [facility] Metoprolol Succinate 150 mg 08/09/19 08:00 08/09/19 08:25 Toprol Xl PO 150 mg DAILY [facility] Administration Midodrine 5 mg 08/09/19 08:00 08/09/19 08:26 Midodrine PO 5 mg DAILY [facility] Administration Multivit/Ca Carb/B Cmplx/FA/Prenat 1 cap 08/09/19 08:00 08/09/19 10:31 Renal Caps Softgel PO Not Given DAILY [facility] Multivitamins/Minerals 1 tab 08/09/19 08:00 08/09/19 08:25 Prosight PO 1 tab DAILY [facility] Administration Sodium Chloride 10 ml 08/08/19 15:23 Saline Flush FLUSH ASDIRECTED PRN Keep Vein Open Discontinued Medications Generic Name Dose Route Start Last Admin Trade Name Freq PRN Reason Stop Dose Admin Furosemide 40 mg 08/08/19 15:28 08/08/19 15:58 Lasix IV 08/08/19 15:29 40 mg ONETIME ONE Administration - Radiology Interpretation Free Text/Narrative:: small pleural effusions. No acute infiltrate/failure pattern. Departure - Departure Time of Disposition: 17:50 Disposition: Refer to Observation Clinical Impression: ESRD (end stage renal disease), Ulcer of sacral region - Discharge Information Sepsis Event Note - Evaluation Sepsis Screening Result: No Definite Risk - Focused Exam Date Exam was Performed: 08/09/19 Time Exam was Performed: 10:33 - Problem List Review Problem List Initiated/Reviewed/Updated: Yes - My Orders Last 24 Hours: My Active Orders 08/08/19 15:23 Sodium Chloride 0.9% [Saline Flush] 10 ml FLUSH ASDIRECTED PRN 08/08/19 15:24 Peripheral IV Insertion Adult [OM.PC] Routine 08/08/19 15:28 Oxygen Therapy [RC] 08/08/19 16:23 Blood Culture x2 Reflex Set [OM.PC] Stat 08/08/19 16:29 UA W/MICROSCOPIC [URIN] Stat 08/08/19 16:38 CULTURE BLOOD [BC] Stat 08/08/19 16:44 CULTURE BLOOD [BC] Stat - Assessment/Plan Last 24 Hours: My Active Orders 08/08/19 15:23 Sodium Chloride 0.9% [Saline Flush] 10 ml FLUSH ASDIRECTED PRN 08/08/19 15:24 Peripheral IV Insertion Adult [OM.PC] Routine 08/08/19 15:28 Oxygen Therapy [RC] 08/08/19 16:23 Blood Culture x2 Reflex Set [OM.PC] Stat 08/08/19 16:29 UA W/MICROSCOPIC [URIN] Stat 08/08/19 16:38 CULTURE BLOOD [BC] Stat 08/08/19 16:44 CULTURE BLOOD [BC] Stat Plan: Discussed findings with Dr. Madrid and Dr. Cherry. Pt. does have a positive troponin but this is chronic due to his ESRD. Blood cultures obtained. Unable to obtain any urine from the patient due to lack of urine production (cath was performed). Pt. will be admitted obs. Troponin, lactic acid, and white count will be trended. He is really quite asymptomatic, other than increasing shortness of breath. He was given lasix 40mg IV in ER. Family is working on having a caregiver stay with the patient. Discussed prognosis and medical history at length with patient and family. He is a DNR/DNI, but at this point the patient will continue dialysis. He is not interested in home health or hospice consult. All questions were answered.
[2019-08-08] MEDS ORDERED: Docusate Sodium 100 MG Cap PO SCH (20:30)
[2019-08-09 05:26] VITALS: BP 96/57; PULSE 60
[2019-08-09 07:54] LABS: ANION GAP 18.1 mmol/L (10-20)
[2019-08-09] MEDS ORDERED: Folic Acid/Vitamin B Complex With C Cap PO SCH (08:00)
[2019-08-09] MEDS ORDERED: Cholecalciferol (Vitamin D3) 25 MCG Tab PO SCH (08:00)
[2019-08-09] MEDS ORDERED: glipiZIDE 5 MG Tab PO SCH (08:00)
[2019-08-09] MEDS ORDERED: Beta-Carotene (Vitamin A) w/Vitamin C & E plus Minerals Tab PO SCH (08:00)
[2019-08-09] MEDS ORDERED: Midodrine 2.5 MG Tab PO SCH (08:00)
[2019-08-09] MEDS ORDERED: Calcium Citrate/Vitamin D3 315 MG-250 Unit Tab PO SCH (08:00)
[2019-08-09] MEDS ORDERED: Calcium Acetate 667 MG Cap PO SCH (08:00)
[2019-08-09] MEDS ORDERED: Apixaban 2.5 MG Tab PO SCH (08:00)
[2019-08-09] MEDS ORDERED: Metoprolol Succinate 50 MG Tab.ER PO SCH (08:00)
[2019-08-09] MEDS ORDERED: Fish Oil/Omega-3 Fatty Acids 1 Gm Cap PO SCH (08:00)
[2019-08-09] MEDS ORDERED: Cyanocobalamin (Vitamin B12) 1,000 MCG Tab PO SCH (08:00)
[2019-08-09] MEDS ORDERED: Allopurinol 100 MG Tab PO SCH (08:00)
[2019-08-09] MEDS ORDERED: Aspirin 81 MG Tab.EC PO SCH (08:00)
--- NOTE | 2019-08-09 14:55 | PCM.DCSUM1 ---
Discharge Summary - Hospital Course Free Text/Narrative:: Pt. is feeling somewhat better today. His troponin, lactic acid and white count were trended and have improved. The patient has been afebrile since admission. Family has found someone who will be staying with the patient and would like the patient discharged since his has improved/not gotten worse since admission. He is still quite weak. Blood was cultured, unable to obtain urine for culture however. No cellulitis or other signs of infection noted. Pt. denies any increased shortness of breath today. He was given lasix 40mg IV yesterday on admission to hospital. - Discharge Data Discharge Date: 08/08/19 Discharge Disposition: Home, Self-Care 01 Condition: Fair - Referral to Home Health Primary Care Physician: Quita Madrid MD - Discharge Plan Home Medications: Home Meds Aspirin [Ecotrin EC] 81 mg PO DAILY 08/28/16 [History] Calcium Citrate/Vitamin D3 [Citracal + D Maximum [place]] 1 tab PO DAILY [History] Cholecalciferol (Vitamin D3) [Vitamin D3] 1,000 unit PO DAILY 08/28/16 [History] Fish Oil/[place]-3 Fatty Acids [Fish Oil 1,000 MG] 1,000 mg PO DAILY 08/28/16 [ History] Fluticasone Propionate [Flonase] 1 spray NS DAILY PRN 08/28/16 [History] Lutein/Minerals/Vit A,C & E [Ocuvite] 1 tab PO DAILY 08/28/16 [History] allopurinoL [Allopurinol] 100 mg PO DAILY 08/28/16 [History] Nitroglycerin [Nitrostat] 0.4 mg SL ASDIRECTED PRN 09/19/16 [History] Calcium Acetate [PhosLo] 1,334 mg PO TIDMEALS 06/24/19 [History] Docusate Sodium [Colace] 200 mg PO MOWEFR 06/24/19 [History] Isosorbide Mononitrate [Imdur] 30 mg PO BEDTIME 06/24/19 [History] Vit B Cmplx NO3/Fa/C/Biot/Zinc [Nephplex Rx] 1 tab PO DAILY 06/24/19 [History] atorvaSTATin [Lipitor] 80 mg PO BEDTIME 06/24/19 [History] Apixaban [Eliquis] 2.5 mg PO BID tablet 06/25/19 [Rx] Metoprolol Succinate [Toprol XL 50mg] 150 mg PO DAILY tab.er 06/25/19 [Rx] Bisacodyl [Laxative] 5 mg PO MOWEFRSA 08/08/19 [History] Cyanocobalamin (Vitamin B-12) [Vitamin B-12] 1,000 mcg PO DAILY 08/08/19 [ History] Docusate Sodium 100 mg PO SUTUTH 08/08/19 [History] Midodrine 5 mg PO ASDIRECTED PRN 08/08/19 [History] Mupirocin Cream [Bactroban Crm] 1 applic TOP TID 08/08/19 [History] Naproxen Sodium [Aleve] 220 mg PO BID PRN 08/08/19 [History] Vit B Cmplx NO3/Fa/C/Biot/Zinc [Nephplex Rx] 1 tab PO DAILY 08/08/19 [History] glipiZIDE [Glucotrol] 5 mg PO DAILY 08/08/19 [History] Fluticasone Propionate [Flonase] 1 spray NASBOTH ASDIRECTED PRN 08/09/19 [ History] Furosemide 20 mg PO DAILY 08/09/19 [History] Forms: ED Department Discharge Referrals: Quita Madrid MD [Primary Care Provider] - 08/22/19 3:30 pm (You have a follow up appt. with Dr. Favio Madrid on August 22, 2019 at 3:30---[facility]) - Discharge Summary/Plan Comment DC Time >30 min.: Yes - General Info Date of Service: 08/09/19 Functional Status: Reports: Pain Controlled - Review of Systems General: Reports: Weakness HEENT: Reports: No Symptoms Pulmonary: Reports: No Symptoms Cardiovascular: Reports: No Symptoms Gastrointestinal: Reports: No Symptoms Genitourinary: Reports: No Symptoms Musculoskeletal: Reports: No Symptoms Skin: Reports: No Symptoms Neurological: Reports: No Symptoms Psychiatric: Reports: No Symptoms - Patient Data Vitals - Most Recent: Last Vital Signs Temp 36.2 C 08/09/19 05:25 Pulse 60 08/09/19 08:25 Resp 19 08/09/19 05:25 BP 96/57 L 08/09/19 08:25 Pulse Ox 100 08/09/19 08:00 Weight - Most Recent: 92.533 kg I&O - Last 24 hours: Intake & Output 08/08/19 08/09/19 08/09/19 22:59 06:59 14:59 Intake Total 200 Balance 200 Lab Results - Last 24 hrs: Laboratory Results - last 24 hr 08/08/19 08/08/19 08/08/19 Range/Units 15:45 15:45 15:45 WBC 13.0 H (4.0-10.0) x10^3/uL RBC 3.61 L (4.5-6.0) x10^6/uL Hgb 11.3 L D (14.0-18.0) g/dL Hct 38.3 L (40.0-52.0) % MCV 106.1 H D (78.0-93.0) fL MCH 31.3 (26.0-32.0) pg MCHC 29.5 L (32.0-36.0) g/dL RDW Coeff of Mario 18.3 H (10.0-15.0) % Plt Count 190 (130-400) x10^3/uL Neut % (Auto) (50.0-80.0) % Lymph % (Auto) (25.0-50.0) % [place] % (Auto) (2.0-11.0) % Eos % (Auto) (0.0-4.0) % Baso % (Auto) (0.2-1.2) % Add Manual Diff Yes Neutrophils % (Manual) 80 (50-80) % Band Neutrophils % 2 (0-6) % Lymphocytes % (Manual) 9 L (25-50) % Monocytes % (Manual) 8 (2-11) % Eosinophils % (Manual) 1 (0-4) % Hypersegmented Neuts Few H Platelet Estimate Adequate Anisocytosis 2+ moderate H Macrocytosis 2+ moderate H Ovalocytes 1+ slight H PT 13.7 H (10.0-12.8) SEC INR 1.2 L (2.0-3.5) Sodium 139 (136-145) mmol/L Potassium 4.9 (3.5-5.1) mmol/L Chloride 97 L (98-107) mmol/L Carbon Dioxide 31 (21-32) mmol/L Anion Gap 15.9 (10-20) mmol/L BUN 37 H (7-18) mg/dL Creatinine 5.2 H* (0.70-1.30) mg/dL Est Cr Clr Drug Dosing TNP Estimated GFR (MDRD) 11 Glucose 159 H (74-106) mg/dL Lactic Acid (0.4-2.0) mmol/L Calcium 9.3 (8.5-10.1) mg/dL Corrected Calcium 9.86 (8.5-10.1) mg/dL Magnesium 2.2 (1.8-2.4) mg/dL Total Bilirubin 0.9 (0.2-1.0) mg/dL AST 22 (15-37) U/L ALT 31 (16-63) U/L Alkaline Phosphatase 78 (46-116) U/L Troponin I 0.141 H* (<=0.056) ng/mL NT-Pro-B Natriuret Pep 33522 H (<=450) pg/mL Total Protein 6.9 (6.4-8.2) g/dL Albumin 3.3 L (3.4-5.0) g/dL Globulin 3.6 Albumin/Globulin Ratio 0.92 08/08/19 08/08/19 08/09/19 Range/Units 16:38 22:10 07:15 WBC 12.5 H (4.0-10.0) x10^3/uL RBC 3.40 L (4.5-6.0) x10^6/uL Hgb 10.8 L (14.0-18.0) g/dL Hct 33.4 L (40.0-52.0) % MCV 98.2 H D (78.0-93.0) fL MCH 31.8 (26.0-32.0) pg MCHC 32.3 (32.0-36.0) g/dL RDW Coeff of Mario 17.3 H (10.0-15.0) % Plt Count 175 (130-400) x10^3/uL Neut % (Auto) 76.5 (50.0-80.0) % Lymph % (Auto) 11.3 L (25.0-50.0) % [place] % (Auto) 9.4 (2.0-11.0) % Eos % (Auto) 2.5 (0.0-4.0) % Baso % (Auto) 0.3 (0.2-1.2) % Add Manual Diff Neutrophils % (Manual) (50-80) % Band Neutrophils % (0-6) % Lymphocytes % (Manual) (25-50) % Monocytes % (Manual) (2-11) % Eosinophils % (Manual) (0-4) % Hypersegmented Neuts Platelet Estimate Anisocytosis Macrocytosis Ovalocytes PT (10.0-12.8) SEC INR (2.0-3.5) Sodium (136-145) mmol/L Potassium (3.5-5.1) mmol/L Chloride (98-107) mmol/L Carbon Dioxide (21-32) mmol/L Anion Gap (10-20) mmol/L BUN (7-18) mg/dL Creatinine (0.70-1.30) mg/dL Est Cr Clr Drug Dosing Estimated GFR (MDRD) Glucose (74-106) mg/dL Lactic Acid 1.4 (0.4-2.0) mmol/L Calcium (8.5-10.1) mg/dL Corrected Calcium (8.5-10.1) mg/dL Magnesium (1.8-2.4) mg/dL Total Bilirubin (0.2-1.0) mg/dL AST (15-37) U/L ALT (16-63) U/L Alkaline Phosphatase (46-116) U/L Troponin I 0.133 H* (<=0.056) ng/mL NT-Pro-B Natriuret Pep (<=450) pg/mL Total Protein (6.4-8.2) g/dL Albumin (3.4-5.0) g/dL Globulin Albumin/Globulin Ratio 08/09/19 08/09/19 Range/Units 07:15 07:15 WBC (4.0-10.0) x10^3/uL RBC (4.5-6.0) x10^6/uL Hgb (14.0-18.0) g/dL Hct (40.0-52.0) % MCV (78.0-93.0) fL MCH (26.0-32.0) pg MCHC (32.0-36.0) g/dL RDW Coeff of Mario (10.0-15.0) % Plt Count (130-400) x10^3/uL Neut % (Auto) (50.0-80.0) % Lymph % (Auto) (25.0-50.0) % [place] % (Auto) (2.0-11.0) % Eos % (Auto) (0.0-4.0) % Baso % (Auto) (0.2-1.2) % Add Manual Diff Neutrophils % (Manual) (50-80) % Band Neutrophils % (0-6) % Lymphocytes % (Manual) (25-50) % Monocytes % (Manual) (2-11) % Eosinophils % (Manual) (0-4) % Hypersegmented Neuts Platelet Estimate Anisocytosis Macrocytosis Ovalocytes PT (10.0-12.8) SEC INR (2.0-3.5) Sodium 140 (136-145) mmol/L Potassium 5.1 (3.5-5.1) mmol/L Chloride 99 (98-107) mmol/L Carbon Dioxide 28 (21-32) mmol/L Anion Gap 18.1 (10-20) mmol/L BUN 47 H (7-18) mg/dL Creatinine 6.3 H* (0.70-1.30) mg/dL Est Cr Clr Drug Dosing 7.99 Estimated GFR (MDRD) 8 Glucose 124 H (74-106) mg/dL Lactic Acid 0.9 (0.4-2.0) mmol/L Calcium 8.9 (8.5-10.1) mg/dL Corrected Calcium 9.70 (8.5-10.1) mg/dL Magnesium (1.8-2.4) mg/dL Total Bilirubin 0.9 (0.2-1.0) mg/dL AST 18 (15-37) U/L ALT 29 (16-63) U/L Alkaline Phosphatase 75 (46-116) U/L Troponin I (<=0.056) ng/mL NT-Pro-B Natriuret Pep (<=450) pg/mL Total Protein 6.6 (6.4-8.2) g/dL Albumin 3.0 L (3.4-5.0) g/dL Globulin 3.6 Albumin/Globulin Ratio 0.83 JOSE Results - Last 24 hrs: Microbiology 08/08/19 16:44 Anaerobic Blood Culture - Final Blood - Venous - Lab Draw Med Orders - Current: Current Medications Discontinued Medications Allopurinol (Zyloprim) 100 mg PO DAILY [facility] Last Admin: 08/09/19 08:26 Dose: 100 mg Apixaban (Eliquis) 2.5 mg PO BID [facility] Last Admin: 08/09/19 08:25 Dose: 2.5 mg Aspirin (Halfprin) 81 mg PO DAILY [facility] Last Admin: 08/09/19 08:25 Dose: 81 mg Atorvastatin Calcium (Lipitor) 80 mg PO BEDTIME [facility] Bisacodyl (Dulcolax) 5 mg PO MOWEFRSA [facility] Calcium Acetate (Phoslo) 1,334 mg PO TIDMEALS [facility] Last Admin: 08/09/19 08:25 Dose: 1,334 mg Calcium Citrate (Calcium Citrate + D) 1 tab PO DAILY [facility] Last Admin: 08/09/19 08:27 Dose: 1 tab Cholecalciferol (Vitamin D3) 25 mcg PO DAILY [facility] Last Admin: 08/09/19 08:26 Dose: 25 mcg Cyanocobalamin (Vitamin B12) 1,000 mcg PO DAILY [facility] Last Admin: 08/09/19 08:26 Dose: 1,000 mcg Docusate Sodium (Colace) [facility] ([facility] Last Admin: 08/08/19 21:40 Dose: Not Given Fish Oil (Fish Oil) 1 gm PO DAILY [facility] Last Admin: 08/09/19 08:25 Dose: 1 gm Furosemide (Lasix) 40 mg IV ONETIME ONE Stop: 08/08/19 15:29 Last Admin: 08/08/19 15:58 Dose: 40 mg Glipizide (Glucotrol) 5 mg PO DAILY [facility] Last Admin: 08/09/19 08:25 Dose: 5 mg Isosorbide Mononitrate (Imdur) 30 mg PO BEDTIME [facility] Metoprolol Succinate (Toprol Xl) 150 mg PO DAILY [facility] Last Admin: 08/09/19 08:25 Dose: 150 mg Midodrine (Midodrine) 5 mg PO DAILY [facility] Last Admin: 08/09/19 08:26 Dose: 5 mg Multivit/Ca Carb/B Cmplx/FA/Prenat (Renal Caps Softgel) 1 cap PO DAILY [facility] Last Admin: 08/09/19 10:31 Dose: Not Given Multivitamins/Minerals (Prosight) 1 tab PO DAILY [facility] Last Admin: 08/09/19 08:25 Dose: 1 tab Sodium Chloride (Saline Flush) 10 ml FLUSH ASDIRECTED PRN PRN Reason: Keep Vein Open - Exam General: Reports: Alert, Oriented HEENT: Reports: Pupils Equal, Pupils Reactive, EOMI, Mucous Membr. Moist/[place] Neck: Reports: Supple Lungs: Reports: Clear to Auscultation, Normal Respiratory Effort Cardiovascular: Reports: Regular Rate, Regular Rhythm GI/Abdominal Exam: Soft, Non-Tender, No Organomegaly, No Distention, No Mass, Pelvis Stable (Male) Exam: Deferred Rectal (Males) Exam: Deferred Extremities: Normal Inspection, Normal Range of Motion, Non-Tender, No Pedal Edema, Normal Capillary Refill Skin: Reports: Warm, Dry, Intact Neurological: Reports: No New Focal Deficit Psy/Mental Status: Reports: Alert, Normal Affect, Normal Mood Physical Findings Comments:: Pt. will be going to dialysis today. Family has arranged assistance for the patient. They are not interested in hospice or home care. Follow-up with PCP as needed in 7-10 days.
[2019-08-09] MEDS ORDERED: Isosorbide Mononitrate 30 MG Tab.ER PO SCH (20:00)
[2019-08-09] MEDS ORDERED: atorvaSTATin 40 MG Tab PO SCH (20:00)
[2019-08-09] MEDS ORDERED: Bisacodyl 5 MG Tab PO SCH (20:27)
[2019-08-09] MEDS ORDERED: Docusate Sodium 100 MG Cap PO SCH (20:27)
== END 2019-08-09 11:05 | disposition home or self-care (01) ==
LOC: VM.ED 15:07 → VM.MS 17:27
PROVIDERS: ADMIT Physician Assistant; ATTEND Physician Assistant
DX: I12.0 Hypertensive chronic kidney disease with stage 5 chronic kidney disease or end stage renal disease (principal); E11.22 Type 2 diabetes mellitus with diabetic chronic kidney disease; N18.6 End stage renal disease; R79.89 Other specified abnormal findings of blood chemistry; E11.622 Type 2 diabetes mellitus with other skin ulcer; L98.429 Non-pressure chronic ulcer of back with unspecified severity; E78.00 Pure hypercholesterolemia, unspecified; I25.10 Atherosclerotic heart disease of native coronary artery without angina pectoris; I25.2 Old myocardial infarction; M10.9 Gout, unspecified; F03.90 Unspecified dementia, unspecified severity, without behavioral disturbance, psychotic disturbance, mood disturbance, and anxiety; Z66 Do not resuscitate; Z79.899 Other long term (current) drug therapy; Z79.82 Long term (current) use of aspirin; Z79.01 Long term (current) use of anticoagulants; Z79.84 Long term (current) use of oral hypoglycemic drugs; Z99.2 Dependence on renal dialysis
CPT/HCPCS: 36415; 71045; 80053; 83605; 83735; 83880; 84484; 85025; 85610; 87040; 93005; 94760; 96374; 99285; A9270; J1940; G0378